=== PATIENT | female | born 1945 | race American Indian/Alaskan Native ===

== ENCOUNTER 2018-07-29 06:10 | Day surgery (SDC) | payer MEDICARE, OTHER, SELFPAY ==
[2018-07-26 10:41] VITALS: BMI 43.2
[2018-07-29] VITALS (18 sets, daily range): BP systolic 130–160; BP diastolic 70–86; PULSE 72–93; RESP 9–20; TEMP 36.2–36.7; O2SAT 93–99; BMI 43.2
--- NOTE | 2018-07-29 | DI.RAD.S_ITS ---
PROCEDURE: XR CERVICAL SPINE 2V OR 3V INDICATIONS: ACDF C5-6 6-7 TECHNIQUE: 2 view(s) of the cervical spine were acquired. COMPARISON: None. FINDINGS: Bones: 2 intraoperative fluoroscopic images of the cervical spine were obtained. No fractures or dislocations to the C5 level. Expected postoperative changes from ACDF of C5-C7. Soft tissues: Limited evaluation of the soft tissue structures appear unremarkable. IMPRESSION: Status post anterior cervical discectomy and fusion of C5-C7. Dictated by: Benjamin Rick M.D. on 07/29/2018 at 10:41 Approved by: Benjamin Rick M.D. on 07/29/2018 at 10:42
[2018-07-29] MEDS: LACTATED RINGERS 1,000 ML 42 ML IV ×2 (06:55→09:11)
--- NOTE | 2018-07-29 07:40 | PC.NURSE ---
Day shift: Pt not on AC unit at this time.
[2018-07-29] MEDS: CEFAZOLIN 2 GM/100 ML FROZ.PIGGY IV ×2 (07:49→15:45)
--- NOTE | 2018-07-29 08:30 | SUR.OPER ---
Supine, head on gel donut. Arms padded with gel pads, tucked at sides, towel roll under shoulders. Safety belt at thigh. Legs uncrossed.
--- NOTE | 2018-07-29 10:29 | PM.OP.1 ---
Operative Date/Time/Diagnoses Date of procedure: 07/29/18 Time of procedure: 08:04 Pre-op diagnosis: 1. C5-6, C6-7 spinal stenosis 2. C5-6, C6-7 spondylosis with radiculopathy Post-op diagnosis: same Procedure & Clinicians Procedure: 1. C5-6 C6-7 anterior cervical diskectomy and fusion 2. C5-6 C6-7 anterior interbody cage placement 3. C5-6 C6-7 anterior instrumentation with plate and screw placement in C5-C6 and C7 vertebrae 4. Utilization of microsurgical technique and operating microscope Same procedure as scheduled: Yes Indications: Patient has been having chronic neck pain and worsening cervical radiculopathy. Patient failed multiple conservative management with worsening pain weakness and numbness in her upper extremity. Patient has been having difficulty performing activity of daily living. After discussing risks benefits of treatment options, patient elected proceed with surgery. Surgeon: Michael Davis Overlock Sewing Machine Operator: Madelin Gibbons'Brien Click Yes if Unassisted: No Anesthesia Type: General Operative Notes Closure Type: primary Specimen(s): none sent Prosthetic devices, grafts, tissues, transplants, or devices: GLobus extend plate, Colonial cages Estimated Blood Loss (mL): 50 Blood products transfused: none Procedure in detail: Patient was seen in the preoperative area. Risks and benefits of the surgery was discussed with the patient. Operative consent was obtained and placed in the chart. Patient was then taken to the operative room. Prophylactic antibiotic was given less than 0.5 hr prior to skin incision. General anesthesia was administered. Patient was placed into a supine position on her radiolucent table. Bilateral shoulders were taped down to allow proper C-arm imaging. Anterior cervical area was prepped and draped in a sterile fashion. Time-out was performed at this time. Using lateral C-arm imaging, the level between C5 and C7 was identified and marked on patient's neck. A oblique incision from midline towards medial border of sternocleidomastoid muscle was made. The platysma muscle was incised in line with skin incision. Metzenbaum scissor was used to develop the plane between the medial border of sternocleidomastoid d and the strap muscles medially. The carotid sheath and its contents were identified and protected behind the hand-held retractor during the entire case. The plane between the carotid sheath and strap muscles was developed with Metzenbaum scissors. Dissection was made down to the level of the anterior cervical fascia. Longus colli muscle was incised on the anterior aspect of vertebral bodies bilaterally from C5-C7. Spinal needle was placed into the C5-6 disc space and confirmed with lateral C-arm imaging. Using microsurgical technique and operative microscope, anterior cervical diskectomy was performed at C5-6 and C6-7 level. This was done by removing the disc material, removing the anterior and posterior osteophytes posterior longitudinal ligaments along with performing bilateral foraminotomies at both levels. Patient was found to have severe central and foraminal stenosis at both levels. Patient's stenosis was fully decompressed after decompression was completed. After the diskectomy was completed, 2 anterior interbody cages were obtained. The cages were packed with DBM bone grafting material. One cage each along with the bone grafting material was then packed into the interbody spaces from C5-C7 with one cage into each interbody level. After the cages were placed, the anterior cervical plate was stabilized to the C5-C7 vertebrae using 2 screws at each each level. Total 6 screws were placed. After confirming placement of the hardware with AP and lateral C-arm imaging, the screws were locked into the plate using the locking mechanism and torque limiting screwdriver. After the hardware was placed and confirmed with AP and lateral C-arm imaging, the wound was irrigated with sterile normal saline. The platysma muscle and the subcutaneous tissue was closed with 2-0 Vicryl. The skin was closed with 4-0 Monocryl and Steri-Strips. Patient tolerated the procedure well. Patient was transferred recovery room in stable condition. There were no complications. Complications: none Condition: stable Disposition: PACU Plan for aftercare: Admit to inpatient hospital
[2018-07-29] MEDS: HYDROMORPHONE 2 MG INJ 0.5 MG IV ×4 (10:34→10:55)
--- NOTE | 2018-07-29 10:38 | PM.PREOP ---
Pre-operative Note Interval Note History & Physical reviewed/Exam performed by Physician: Yes Changes to H&P: No
[2018-07-29] MEDS: LORazepam 2 MG/ML SYRINGE 0.5 MG IV (10:59)
--- NOTE | 2018-07-29 11:01 | SUR.PHASEI ---
Pt arrived, awakened, follows commands, c/o pain medicated with dilaudid and lorazepam. R Shouler with 3x3 area of eccymosis- ice applied and L shoulder has 2x2 reddened area- some skin sloughed off.
--- NOTE | 2018-07-29 11:14 | SUR.PHASEI ---
Report to Melisa, Pt states pain tolerarable after lorazepam given.
--- NOTE | 2018-07-29 11:37 | PC.NURSE ---
Day shift: Arrived on unit from PACu at approx 1130. Pt is A&Ox3. CMS intact. Good radial pulses. Dressing anterior neck is CDI. Collar in place. VS ok. 2L NC 95%.
--- NOTE | 2018-07-29 11:41 | SUR.PHASEI ---
Pt transfered up to room 205, left in stable condition. Area on l shoulder resolved, R shoulder still with eccymotic area. neck dressing with soft collar intact. Pt left in stable condition, placed on nasal cannula 02 at 2/l.
[2018-07-29] MEDS: SODIUM CHLORIDE 0.9% 1,000 ML 100 ML IV ×2 (12:53→21:49)
[2018-07-29] MEDS: HYDROCODONE/ACET 5/325 TABLET 2 TAB PO ×2 (13:23→19:25)
--- NOTE | 2018-07-29 14:46 | PT.IIE ---
Current Diagnoses Other spondylosis with radiculopathy, cervical region (07/29/18) Spinal stenosis, cervical region (07/29/18) Surgery Performed Operation Date: 07/29/18 07:45 Actual Procedures p C5-6,C6-7 ACDF w/Anterior Instru. - Michael Davis MD Surgical History (Last Updated 07/26/18 @ 11:08 by Marissa Geiger, RN) History of arthroscopy of both knees (Acute) History of lumbar fusion (Acute 04/30/17) Hx of bladder repair surgery (Acute) Medical History (Last Updated 07/26/18 @ 11:12 by Marissa Geiger RN) Allergic rhinitis (Acute) Anxiety (Acute) Arm fracture, left (Acute) Arthritis (Acute) Depression (Acute) Diverticulosis (Acute) Encounter for removal of skin lesion (Acute ~2017) Former smoker (Acute) Generalized headaches (Acute) HLD (hyperlipidemia) (Acute) History of hysterectomy (Acute ~1972) Panic disorder (Acute) Tinnitus (Acute) Physical Therapy Inpatient Evaluation/Re-Eval M1 PT/OT-IP Prior Functional Status Start: 07/29/18 15:56 Freq: NEEDED Status: Active Protocol: Document 07/29/18 14:46 AB (Rec: 07/29/18 16:12 AB [id number]) Medical Review Prior Functional Status Medical History Reviewed Yes Communication able to make needs known Mobility and Gait pt stated that she is independent with all mobilities and ambulation without AD Social History Household Members none Living Arrangements House Number of Floors (Floors) One Floor Number of Stairs To Enter/Railing? has no steps to enter Home Environment High Toilet Walk in Shower Home Equipment Straight Cane Shower Seat without Backrest Hand Held Shower Grab Bars Near Toilet Grab Bars In Shower Employment Status Retired Additional Social History Comment pt's niece that lives next door will check on pt and then pt's daughter will be coming Thursday to stay with pt for 1 week pt has a regular cane but has a bedcane on L side of the bed M2 PT-IP Current Condition Start: 07/29/18 15:56 Freq: NEEDED Status: Active Protocol: Document 07/29/18 14:46 AB (Rec: 07/29/18 16:12 AB [id number]) Physical Therapy Current Condition Current Condition Evaluation Date 07/29/18 Treatment Diagnosis s/p C5-6, C6-7 ACDF; difficulty in walking Onset Date 07/29/18 Precautions Cervical Spine Precautions Soft Collar for Comfort No Heavy Lifting Log Roll M3 PT-IP Subjective Start: 07/29/18 15:56 Freq: NEEDED Status: Active Protocol: Document 07/29/18 14:46 AB (Rec: 07/29/18 16:12 AB [id number]) Subjective Physical Therapy Visit Type Type Initial Evaluation Visit Start Time 14:46 Visit Stop Time 15:21 Total Visit Minutes 40 Number of CLINICAL REVIEW NURSE Visits 0 Physical Therapy Visit Comments Patient Comments pt agreeable to do PT Therapy Pain Assessment Pain When Pain Assessed At Rest Pain Present Pain Present Pain Reported Location Neck Intensity 8 Scale Used Numeric (1 - 10) Pain Management Techniques Apply Cold Re-positioning Timing of Activity with Medications M4 PT-IP Mobility and Gait Start: 07/29/18 15:56 Freq: NEEDED Status: Active Protocol: Document 07/29/18 14:46 AB (Rec: 07/29/18 16:12 AB [id number]) PT-Bed Mobility Assessment Rolling Type of Rolling Log Rolling Level of Assist Standby Assistance Supine to Sit Supine to Sit Standby Assistance Bedrails Sit to Supine Sit to Supine Standby Assistance Bedrails Scooting Scooting to Edge of Bed Standby Assistance PT-Transfer Assessment Sit to and From Stand Sit to and from Stand Contact Guard Assistance Equipment Transfer Assistive Device Gait Belt Front Wheeled Walker Orthotic/Prosthetic Devices or Brace: No Transfers Transfer Destination Toilet Transfer Technique pt ambulated to the toilet using FWW Transfer Ability Level of Assist Minimal Assistance 1 Person Assistance Use of Upper Extremities Comments Mobility Comments pt requested to use the toilet and ambulated using FWW min A and cues. pt was able to completed sit to stand from the toilet using grab bar SBA and ambulated towards the sink using FWW min A and cues and maintained standing using FWW for support CGA while completing handwashing. pt requested to go back to bed and ambulated using FWW min A and cues. Gait Assessment Gait Gait Assistance Required: Minimum Assistance Distance (Feet) 20 Able to Maintain Weight Bearing Status Yes During Gait Assistive Devices Assistive Device Gait Belt Front Wheeled Walker Orthotic/Prosthetic Devices or Brace: No Gait Deviations General Gait Pattern Antalgic Decreased Stride Length Decreased Feet Clearance Factors Limiting Gait Function Factors Limiting Gait Function Decreased Activity Tolerance Decreased Strength Limited Range of Motion Pain Poor Balance Comments Gait Comments pt presents with unsteady antalgic gait. PT-Balance Assessment Sitting Balance and Reactions Static Sitting Balance Ability Good Dynamic Sitting Balance Ability Good Standing Balance and Reactions Static Standing Balance Ability Fair Dynamic Standing Balance Ability Fair Device Used FWW M5 PT-IP Objective Assessments Start: 07/29/18 15:56 Freq: NEEDED Status: Active Protocol: Document 07/29/18 14:46 AB (Rec: 07/29/18 16:12 AB [id number]) Orientation Orientation/Cognition Level of Alertness Alert Orientation Name Place Situation Language Function Ability No Deficits Noted Safety Awareness Understands Safety Issues Memory Description No Deficits Noted Gross Range of Motion Lower Extremity ROM Assessment Within Functional Limits Strength Lower Extremity Strength Assessment Within Functional Limits Sensation Assessment Sensation Gross Sensation WNL Muscle Tone Muscle Tone WNL Yes M6 PT-IP Treatment Start: 07/29/18 15:56 Freq: NEEDED Status: Active Protocol: Document 07/29/18 14:46 AB (Rec: 07/29/18 16:12 AB [id number]) Physical Therapy Treatment Education Education Provided Precautions Post-Op Packet Safety M7 PT-IP Assessment and Plan Start: 07/29/18 15:56 Freq: NEEDED Status: Active Protocol: Document 07/29/18 14:46 AB (Rec: 07/29/18 16:12 AB [id number]) PT Summary Assessment and Plan Potential Rehabilitation Potential Good Status of Condition at Evaluation Stable Summary Impairments Pain ROM Strength Balance Coordination Sensation Bed Mobility Transfers Gait Activity Tolerance Assessment Summary pt requiring one person assist with mobility and will likely improve during hospital stay. will continue to assess progress. Goals Bed Mobility Goal Independent Transfer Goal Independent Cane Front Wheeled Walker Gait Goal Independent Cane Front Wheel Walker Gait Distance 200 Days to Meet Goals 3 Frequency of Treatment Frequency Of Treatment Twice a Day Treatment Plan Physical Therapy Treatment Plan Bed Mobility Training Transfer Training Gait Training Therapeutic Exercise Balance Retraining Post Op Education Discharge Planning Hot or Cold Pack Neuromuscular Re-ed Coordination Retraining Manual Therapy Other Recommendations and Next Treatment ambulation using SPC/without Focus AD if appropriate; soft collar management; caregiver training if appropriate Recommendations To Nursing Amount of Assist Needed 1 Person Assist Discharge Recommendations PT Discharge Recommendations Home with Assistance Equipment Needed for Home Before FWW if not safet with SPC/ Discharge without AD: pt stated that she can get out from their clinic
[2018-07-29] MEDS: SENNOSIDES 8.6 MG TABLET 17.2 MG PO (20:22)
[2018-07-29] MEDS: DOCUSATE 100 MG CAPSULE PO (20:22)
[2018-07-30] MEDS: CEFAZOLIN 2 GM/100 ML FROZ.PIGGY IV (00:10)
[2018-07-30] MEDS: MAG HYDROX/ALUM/SIMETH 30 ML UDC PO (00:12)
[2018-07-30] MEDS: HYDROCODONE/ACET 5/325 TABLET 2 TAB PO ×2 (00:12→05:49)
[2018-07-30 00:17] VITALS: BP 130/94; PULSE 80; RESP 16; TEMP 36.7; O2SAT 95
--- NOTE | 2018-07-30 00:31 | PC.NURSE ---
Addendum entered by Payton Henriquez R.N. 07/30/18 05:55: Does complain of sore throat, but denies difficulty swallowing. No coughing or choking observed when taking pills/water. Original Note: Addendum entered by Payton Henriquez R.N. 07/30/18 05:53: Slept at intervals. Up to bathroom with SBA + walker but likes to garbage pick up man walker and walk rather than actually utilizing the walker for support. RA sat 97%. Complains of 6/10 posterior neck/shoulders; medicated with Vicodin and ice applied to neck. Original Note: Patient is alert and oriented. Breath sounds CTA with RA sat of 95%. HRR. Denies nausea but is having some heartburn unrelieved by earlier Zantac administration so medicated with Maalox. BT hypoactive; denies flatus. Voiding on toilet without dysuria, frequency or urgency. Able to turn self in bed and using walker and SBA when out of bed. Neck dressing is CDI; wearing soft collar. Noted petichiae beneath Tegaderm over dressing. Bruise noted on right upper arm. States pain is currently 8/10 so medicated with Vicodin and ice applied to posterior neck. CMS is intact. Wearing bilateral foot SCD's. Fall risk score is high and bed alarm is activated.
[2018-07-30 06:18] VITALS: BP 138/60; PULSE 77; RESP 16; TEMP 36.4; O2SAT 95
[2018-07-30 07:45] VITALS: BP 140/68; PULSE 67; RESP 18; TEMP 36.3; O2SAT 97
--- NOTE | 2018-07-30 08:03 | PM.DS.1 ---
History of Present Illness Date Patient Seen: 07/30/18 Time Patient Seen: 08:03 Chief complaint: [id number] Narrative: Patient has been having chronic neck pain and worsening cervical radiculopathy. Patient failed multiple conservative management with worsening pain weakness and numbness in her upper extremity. Patient has been having difficulty performing activity of daily living. After discussing risks benefits of treatment options, patient elected proceed with surgery. Discharge Providers Date of admission: 07/29/18 06:10 Discharge Date: 07/30/18 Consults: 07/29/18 11:32 Consult to Occupational Therapy Evaluate & Treat Comment: Physician Instructions: Evaluate and treat Consult to Physical Therapy Evaluate & Treat Comment: Physician Instructions: Evaluate and Treat Discharge provider: Madelin Garcia PA-C Summary Discharge Diagnosis: s/p ACDF Hypertension Glaucoma morbid obesity Hospital Course: Lisandra was admitted for C5-[address] Davis and she consented to procedure. hospital course unremarkable. on postop day 1. Patient was ready to go home. She is eating and voiding without difficulty or assistance. She had been up with physical therapy and OT. She was instructed on her precautions of no bending lifting or twisting. Exam Vital Signs (past 8 hours): - 07/30/18 00:17 07/30/18 06:18 Temperature 98.0 F 97.5 F L Pulse Rate 80 77 Respiratory Rate 16 16 Blood Pressure 130/94 H 138/60 Pulse Oximetry 95 95 Fraction of Inspired Oxygen 21 Oxygen Delivery Method Room Air Oxygen Flow Rate 0 Narrative Exam Narrative: Patient is sitting up in bed in no acute distress. She is alert and oriented x3. Reporting Coordinator strength strong and equal. Sensation intact light touch throughout bilateral extremities. Cervical collar in place. Anterior dressing CDI. Radial pulses are symmetrical. Her pain is well controlled with House. Discharge Plan Discharge Plan Patient Disposition: Home Discharge comment: DC home after PT Discharge Med Rec/Prescriptions Prescriptions: New hydrocodone-acetaminophen 5-325 mg Tablet 2 tab PO Q4HR PRN (Reason: Pain, Severe (7-10)) Qty: 60 RF: 0 docusate sodium 100 mg Capsule 100 mg PO BID Qty: 60 RF: 0 cyclobenzaprine 5 mg tablet 5 mg PO TID PRN (Reason: muscle spasm) Qty: 30 RF: 0 Continued cetirizine 10 MG tablet 10 mg PO QDAYP PRN (Reason: Seasonal allergies) Qty: 0 RF: 0 ranitidine HCl 150 MG tablet 150 mg PO QDAY Qty: 0 RF: 0 hydrochlorothiazide 12.5 MG tablet 12.5 mg PO QDAY Qty: 0 RF: 0 Follow up/Referrals: Michael Davis MD [Physician] - Provider Discharge Instructions Diet: Diet as Tolerated Activity: No excessive bending, lifting, or twisting Skin/Wound/Dressing Care Report to your healthcare provider any signs of infection, such as:: chills, fever and increased pain Dressing: Leave in place until appointment Discharge Data Attending Provider: Michael Davis Admit Date/Time: 07/29/18 06:10
[2018-07-30] MEDS: hydroCHLOROthiazide 12.5 MG CAPSULE PO (08:30)
[2018-07-30] MEDS: DOCUSATE 100 MG CAPSULE PO (08:30)
--- NOTE | 2018-07-30 09:05 | PT.IPTN ---
Current Diagnoses Other spondylosis with radiculopathy, cervical region (07/29/18) Spinal stenosis, cervical region (07/29/18) Surgery Performed Operation Date: 07/29/18 07:45 Actual Procedures p C5-6,C6-7 ACDF w/Anterior Instru. - Michael Davis MD Physical Therapy Treatment Note M2 PT-IP Current Condition Start: 07/29/18 15:56 Freq: NEEDED Status: Active Protocol: Document 07/29/18 14:46 AB (Rec: 07/29/18 16:12 AB [id number]) Physical Therapy Current Condition Current Condition Evaluation Date 07/29/18 Treatment Diagnosis s/p C5-6, C6-7 ACDF; difficulty in walking Onset Date 07/29/18 Precautions Cervical Spine Precautions Soft Collar for Comfort No Heavy Lifting Log Roll M3 PT-IP Subjective Start: 07/29/18 15:56 Freq: NEEDED Status: Active Protocol: Document 07/30/18 09:05 GGD (Rec: 07/30/18 11:21 GGD [id number]) Subjective Physical Therapy Visit Type Type Treatment Note Visit Start Time 08:45 Visit Stop Time 09:05 Total Visit Minutes 20 Number of MEDIA PLANNER / BUYER Visits 1 Physical Therapy Visit Comments Patient Comments Pt hopes to go home. Therapy Pain Assessment Pain When Pain Assessed At Rest Pain Present Pain Present Pain Reported Location Neck Intensity 6 Scale Used Numeric (1 - 10) M4 PT-IP Mobility and Gait Start: 07/29/18 15:56 Freq: NEEDED Status: Active Protocol: Document 07/30/18 09:05 GGD (Rec: 07/30/18 11:21 GGD [id number]) PT-Bed Mobility Assessment Sit to Supine Sit to Supine Standby Assistance Bedrails Scooting Scooting to Edge of Bed Standby Assistance PT-Transfer Assessment Sit to and From Stand Sit to and from Stand Contact Guard Assistance Equipment Transfer Assistive Device Straight Cane Front Wheeled Walker Orthotic/Prosthetic Devices or Brace: No Transfers Transfer Destination Bed Transfer Technique pt ambulated to the toilet using FWW Transfer Ability Level of Assist Contact Guard Assistance 1 Person Assistance Use of Upper Extremities Gait Assessment Gait Gait Assistance Required: Contact Guard Assist Distance (Feet) 150 Able to Maintain Weight Bearing Status Yes During Gait Assistive Devices Assistive Device Gait Belt Front Wheeled Walker Orthotic/Prosthetic Devices or Brace: No Gait Deviations General Gait Pattern Antalgic Decreased Stride Length Decreased Feet Clearance Factors Limiting Gait Function Factors Limiting Gait Function Decreased Activity Tolerance Decreased Strength Limited Range of Motion Pain Poor Balance M5 PT-IP Objective Assessments Start: 07/29/18 15:56 Freq: NEEDED Status: Active Protocol: Document 07/29/18 14:46 AB (Rec: 07/29/18 16:12 AB [id number]) Orientation Orientation/Cognition Level of Alertness Alert Orientation Name Place Situation Language Function Ability No Deficits Noted Safety Awareness Understands Safety Issues Memory Description No Deficits Noted Gross Range of Motion Lower Extremity ROM Assessment Within Functional Limits Strength Lower Extremity Strength Assessment Within Functional Limits Sensation Assessment Sensation Gross Sensation WNL Muscle Tone Muscle Tone WNL Yes M6 PT-IP Treatment Start: 07/29/18 15:56 Freq: NEEDED Status: Active Protocol: Document 07/30/18 09:05 GGD (Rec: 07/30/18 11:21 GGD [id number]) Physical Therapy Treatment Education Education Provided Precautions Safety M7 PT-IP Assessment and Plan Start: 07/29/18 15:56 Freq: NEEDED Status: Active Protocol: Document 07/30/18 09:05 GGD (Rec: 07/30/18 11:21 GGD [id number]) PT Summary Assessment and Plan Summary Assessment Summary Pt improving with mobility. She had mild unsteadiness with gait with SPC, but no LOB. She would have improved safety and balance with gait with FWW. Pt safe for home d/C when medically stable. Frequency of Treatment Frequency Of Treatment Twice a Day Treatment Plan Physical Therapy Treatment Plan Bed Mobility Training Transfer Training Gait Training Therapeutic Exercise Balance Retraining Post Op Education Discharge Planning Hot or Cold Pack Neuromuscular Re-ed Coordination Retraining Manual Therapy Other Recommendations and Next Treatment ambulation using SPC/without Focus AD if appropriate; soft collar management; caregiver training if appropriate Recommendations To Nursing Amount of Assist Needed 1 Person Assist Discharge Recommendations PT Discharge Recommendations Home with Assistance
--- NOTE | 2018-07-30 09:05 | PC.NURSE ---
Addendum entered by Adriana Hollis R.N. 07/30/18 11:22: pt escorted to ER entrance and met by daughter in personal vehicle. Original Note: Addendum entered by Adriana Hollis R.N. 07/30/18 10:46: Ride arrive. PIV removed (tolerated well). neighborhood planner in room. Original Note: Addendum entered by Adriana Hollis R.N. 07/30/18 10:14: Using IS q1h. Original Note: AM SHIFT pt AO and receptive to care. Up to BR and voiding, denying nausea. Showered with OT and ambulated in the hallways with PT. Tolerating pain. Dressing cdi. NS infusion stopped at 0830, pt saline locked. Discharge ready and ride to arrive around 1000.
--- NOTE | 2018-07-30 09:13 | OT.IP.EVAL ---
Current Diagnoses Other spondylosis with radiculopathy, cervical region (07/29/18) Spinal stenosis, cervical region (07/29/18) Surgery Performed Operation Date: 07/29/18 07:45 Actual Procedures p C5-6,C6-7 ACDF w/Anterior Instru. - Michael Davis MD Past Medical History (Last Updated 07/26/18 @ 11:12 by Marissa Geiger, RN) Allergic rhinitis (Acute) Anxiety (Acute) Arm fracture, left (Acute) Arthritis (Acute) Depression (Acute) Diverticulosis (Acute) Encounter for removal of skin lesion (Acute ~2017) Former smoker (Acute) Generalized headaches (Acute) HLD (hyperlipidemia) (Acute) History of hysterectomy (Acute ~1972) Panic disorder (Acute) Tinnitus (Acute) Surgical History (Last Updated 07/26/18 @ 11:08 by Marissa Geiger, RN) History of arthroscopy of both knees (Acute) History of lumbar fusion (Acute 04/30/17) Hx of bladder repair surgery (Acute) Occupational Therapy Inpatient Evaluation/Re-Eval M1 PT/OT-IP Prior Functional Status Start: 07/29/18 15:56 Freq: NEEDED Status: Active Protocol: Document 07/29/18 14:46 AB (Rec: 07/29/18 16:12 AB [id number]) Medical Review Prior Functional Status Medical History Reviewed Yes Communication able to make needs known Mobility and Gait pt stated that she is independent with all mobilities and ambulation without AD Social History Household Members none Living Arrangements House Number of Floors (Floors) One Floor Number of Stairs To Enter/Railing? has no steps to enter Home Environment High Toilet Walk in Shower Home Equipment Straight Cane Shower Seat without Backrest Hand Held Shower Grab Bars Near Toilet Grab Bars In Shower Employment Status Retired Additional Social History Comment pt's niece that lives next door will check on pt and then pt's daughter will be coming Thursday to stay with pt for 1 week pt has a regular cane but has a bedcane on L side of the bed M1 PT/OT-IP Prior Functional Status Start: 07/30/18 08:56 Freq: NEEDED Status: Active Protocol: Document 07/30/18 08:56 [facility] (Rec: 07/30/18 09:13 [facility] [id number]) Medical Review Prior Functional Status Medical History Reviewed Yes Diet/Fluid Consistency Regular Thin Liquids Communication able to make needs known Mobility and Gait pt stated that she is independent with all mobilities and ambulation without AD Activities of Daily Living and IADL's Prior independent with all needs. Social History Household Members none Living Arrangements House Number of Floors (Floors) One Floor Number of Stairs To Enter/Railing? has no steps to enter Home Environment High Toilet Walk in Shower Home Equipment Straight Cane Shower Seat without Backrest Hand Held Shower Grab Bars Near Toilet Grab Bars In Shower Employment Status Retired Additional Social History Comment pt's niece that lives next door will check on pt and then pt's daughter will be coming Thursday to stay with pt for 1 week pt has a regular cane but has a bedcane on L side of the bed M2 OT-IP Current Condition Start: 07/30/18 08:56 Freq: Status: Active Protocol: Document 07/30/18 08:56 [facility] (Rec: 07/30/18 09:13 [facility] [id number]) Occupational Therapy Current Condition Current Condition Evaluation Date 07/30/18 Treatment Diagnosis s/p C5-6, C6-7 ACDF Diagnosis Onset Date 07/29/18 Post Operative Precautions Cervical Spine Precautions Soft Collar for Comfort Soft Collar at all Times No Heavy Lifting Log Roll M3 OT- IP Subjective and Pain Start: 07/30/18 08:56 Freq: Status: Active Protocol: Document 07/30/18 08:56 [facility] (Rec: 07/30/18 09:13 [facility] [id number]) OT- Subjective Occupational Therapy Visit Type Type Initial Evaluation Visit Start Time 09:30 Visit Stop Time 09:53 Total Visit Minutes 23 Occupational Therapy Visit Comments Patient Comments Pt wanting to shower and go home today. OT Pain Assessment Pain When Pain Assessed During Mobility Pain Present Pain Present Pain Reported Location Neck Intensity 6 M4 OT- IP ADL's Start: 07/30/18 08:56 Freq: Status: Active Protocol: Document 07/30/18 08:56 [facility] (Rec: 07/30/18 09:13 [facility] [id number]) OT ADL-Dressing General Eval Upper Body Dressing Ability Independent Lower Body Dressing Ability Independent Comments OT Dressing Comments Pt able to sit from LB dressing needs. Pt also able to do soft collar management after initial cues. OT ADL-Toileting General Evaluation Toileting Ability Independent OT ADL-Bathing Bathing Type Bathing Type Shower General Evaluation Bathing Ability Standby Assistance Areas Needing Assistance Retrieving/Setting Up Items Comments OT Bathing Comments Assist to take HHSP off the peg, otherwise after set-up able to do most of the shower on her own. Pt states has access to a shower chair if needed and will shower when someone present. M5 OT- IP IADL's Start: 07/30/18 08:56 Freq: Status: Active Protocol: Document 07/30/18 08:56 [facility] (Rec: 07/30/18 09:13 [facility] [id number]) OT-Instrumental Activities of Daily Living Deficits IADL Deficits Identified No Deficits Home Safety Awareness Awareness of Need for Assistance at Home Good Awareness Ability to Problem Solve Emergency Able to Problem Solve Situations Home Safety Comments Pt to have family assist for all iADl needs, especially to get her 2-3 gallon water form the store. Medication Management Medication Management No Deficits Identified Money Management Money Management No Deficits Identified M6 OT- IP Functional Cognition Start: 07/30/18 08:56 Freq: Status: Active Protocol: Document 07/30/18 08:56 [facility] (Rec: 07/30/18 09:13 [facility] [id number]) Cognitive Factors Limiting Selfcare Function Cognitive Ability Level of Alertness Alert Patient Orientation Name Age Birthday Month Date Year Day of Week Place Situation Attention Span Ability Capable of Focused Attention Capable of Sustained Attention Ability to Follow Commands Able to Follow Multi-Step Commands Memory Description No Deficits Noted Safety Awareness No Deficits Noted Problem Solving Ability No deficits Noted Cognitive Comments Cognitive Assessment Comments No deficits noted. OT- Vision and Hearing OT- Hearing Assessment OT- Hearing Assessment WFL OT- Vision Assessment Visual Acuity WFL M7 OT- IP Mobility and Balance Start: 07/30/18 08:56 Freq: Status: Active Protocol: Document 07/30/18 08:56 [facility] (Rec: 07/30/18 09:13 [facility] [id number]) OT- Bed Mobility Assessment Rolling Type of Rolling Roll to Right Level of Assistance Standby Assistance OT-Transfer Assessment Sit to and From Stand Sit to and from Stand Independent Transfers Transfer Ability Independent Technique Transfer Destination Chair Shower Stall Toilet Devices Transfer Assistive Devices Front Wheeled Walker Comments Mobility Comments Pt independent with FWW and able to show good safety and able to access FWW if needed. PIPELINE SUPERINTENDENT came in to access pt with cane. OT- Balance Assessment Sitting Balance and Reactions Static Sitting Balance Ability Normal Dynamic Sitting Balance Ability Normal Standing Balance and Reactions Static Standing Balance Ability Normal Dynamic Standing Balance Ability Good M8 OT- IP Objective Assessments Start: 07/30/18 08:56 Freq: Status: Active Protocol: Document 07/30/18 08:56 [facility] (Rec: 07/30/18 09:13 [facility] [id number]) OT Gross Range of Motion Upper Extremity Range of Motion Assessment Within Functional Limits OT Strength Comments Strength Comments WFL for BUE M9 OT- IP Assessment and Plan Start: 07/30/18 08:56 Freq: Status: Active Protocol: Document 07/30/18 08:56 [facility] (Rec: 07/30/18 09:13 [facility] [id number]) OT Summary Assessment and Plan Potential Rehabilitation Potential Excellent Analytic Complexity at Evaluation Low Summary OT Impairments Functional Mobility Progress Towards Goals Safe For Discharge Assessment Summary Pt low complexity and may barrier is that pt will benefit from FWW as PIPELINE SUPERINTENDENT determined pt a bit unsteady with cane at this time. Pt will have daughter come and stay with her from a week and other family members to assist as well. Pt looking to go home today. Goals Patient/Caregiver Education Goal Demonstrate Post-Op Precautions Days to Meet Goals 1 Frequency of Treatment Frequency Of Treatment Once a Day Treatment Plan OT Treatment Plan Patient/Family Education Discharge Planning Discharge Recommendations OT Discharge Recommendations Home with Assistance Home Equipment Needs Pt has access for shower chair and FWW.
--- NOTE | 2018-07-30 13:46 | CM.DPNOTE ---
Pt DC home today w/family. Cleared by therapy team and PA, no SW needs identified and no barriers to safe return home w/outpt f/u as ordered by Dr Davis. ELIZABETH Holguin Discharge Planning/Care Management CM Discharge Assessment Start: 07/29/18 08:42 Freq: Status: Discharge Protocol: Document 07/29/18 08:42 [email or web address] (Rec: 07/29/18 08:48 LYUBOV [id number]) Discharge Planning Assessment Assigned Career Advisor ELIZABETH Durbin DPOA/Assigned Designee Name Angelica Dow dtr Contact Information [phone] Advance Directives? No History Provided By Medical Record Prior Living Arrangements House Household Members none Type of transporation used prior to Drives own vehicle admit Independent with ADL's Yes: Activity tolerance has decreased sec to back pain Is patient alert and oriented? Yes Barriers to Discharge No Comment Pt off floor for spinal surgery today. Likely pt will be able to DC back home w/dtr to assist. Further assessment needed. Discharge Plan Home Transportation Arrangement Family Referrals Initiated None needed Additional Comment Pending therapy eval and further assessment. Review Status In Process
== END 2018-07-30 11:00 | disposition home or self-care (01) ==
LOC: AC 07-30 10:55 → OR 07-30 11:32
PROVIDERS: Visit Provider Orthopaedic Surgery Orthopaedic Surgery of the Spine
PROC: (CPT 22551; principal; 2018-07-29 07:45)
DX: M48.02 Spinal stenosis, cervical region (principal); M47.22 Other spondylosis with radiculopathy, cervical region; E66.01 Morbid (severe) obesity due to excess calories; Z68.41 Body mass index [BMI] 40.0-44.9, adult; I10 Essential (primary) hypertension
CPT/HCPCS: 22551; 22853 ×2; 22552; 72040; 76000; 94760; 94762; 97116; 97161; 97165; 97530; 97535; C1776; J0690; J1100; J1170; J2060; J2250; J2405; J2704; J3010

== ENCOUNTER → 2021-10-02 12:33 | Outpatient (CLI) | payer MEDICARE, OTHER, SELFPAY ==
[2018-07-29 13:07] VITALS: BMI 43.2
[2021-10-02 13:14] LABS: Add Manual Diff / Slide Review NO; Basophils Absolute Auto 0 /uL (0-100); Basophils Percent Auto 0.7 % (0-2); Eosinophils Absolute Auto 100 /uL (0-450); Eosinophils Percent Auto 1.3 % (2-4); Hemoglobin 12.8 g/dL (12.0-16.0); Lymphocytes Absolute Auto 1400 /uL (1100-4500); Lymphocytes Percent Auto 28.1 % (25-40); Mean Corpuscular HGB Conc 33.6 % (30-36); Mean Corpuscular Volume 83.4 fL (80-100); Monocytes Absolute Auto 500 /uL (0-900); Monocytes Percent Auto 9.3 % (3-14); Neutrophils Absolute Auto 3000 /uL (1500-7000); Neutrophils Percent Auto 60.6 % (50-75); Platelet Count 225 X10^3/uL (150-400); Red Blood Cell Count 4.56 X10^6/uL (4.0-5.2); Red Cell Distribution Width 14.2 % (11.6-14.8)
[2021-10-02 13:24] LABS: Hemoglobin A1C% w Est Avg Glu 6.1 % (4.0-6.0)
[2021-10-02 13:59] LABS: BUN Creatinine Ratio 31.9 (6-22); Blood Urea Nitrogen 30 mg/dL (7-17); Calcium 8.9 mg/dL (8.4-10.2); Carbon Dioxide 24 mmol/L (22-32); Chloride 107 mmol/L (98-107); Estimated Glomerular Filt Rate > 60 mL/min (>60); Glucose 109 mg/dL (80-110); HEMOLYSIS 16 (0-50); Potassium 4.2 mmol/L (3.4-5.1); Sodium 137 mmol/L (137-145)
== END ==
PROVIDERS: PCP Family Medicine; Referring Provider Orthopaedic Surgery; Visit Provider Orthopaedic Surgery
DX: Z01.818 Encounter for other preprocedural examination (principal); R73.9 Hyperglycemia, unspecified; M25.562 Pain in left knee; Z01.812 Encounter for preprocedural laboratory examination
CPT/HCPCS: 36415; 80048; 83036; 85025; 93005; 93010

== ENCOUNTER → 2021-12-03 09:49 | Outpatient (CLI) | payer MEDICARE, MEDICAID, SELFPAY ==
[2018-07-29 13:07] VITALS: BMI 43.2
[2021-12-03 12:30] LABS: COVID19 -Nasal RAPID Negative (Negative)
== END ==
PROVIDERS: PCP Family Medicine; Referring Provider Orthopaedic Surgery; Visit Provider Orthopaedic Surgery
DX: Z20.822 Contact with and (suspected) exposure to COVID-19 (principal)
CPT/HCPCS: 87635; C9803

== ENCOUNTER 2021-12-05 11:00 | Observation (INO) | payer MEDICARE, MEDICAID, SELFPAY ==
[2018-07-29 13:07] VITALS: BMI 43.2
[2021-11-29 12:26] VITALS: BMI 37.7
[2021-12-04] VITALS (15 sets, daily range): BP systolic 136–179; BP diastolic 53–83; PULSE 65–85; RESP 15–21; TEMP 35.7–36.7; O2SAT 94–100; BMI 37.7; BMI 39.0
--- NOTE | 2021-12-04 07:35 | DI.RAD.S_ITS ---
PROCEDURE: XR KNEE LT 1TO2V INDICATIONS: post op total knee TECHNIQUE: 2 view(s) of the knee acquired. [facility] [place] KNEE 4+ VIEWS LEFT, 10/08/2021, 16:47. FINDINGS: Bones: Patient is status post knee joint arthroplasty. Hardware components are in expected positions. Visualized bony structures are intact. Soft tissues: Overlying postoperative changes are noted. IMPRESSION: Expected appearance of the left hip arthroplasty. Dictated by: Victor M Alvarado M.D. on 12/04/2021 at 10:53 Approved by: Victor M Alvarado M.D. on 12/04/2021 at 10:54
[2021-12-04] MEDS: ACETAMINOPHEN 325 MG TABLET 975 MG PO (08:19)
[2021-12-04] MEDS: PREGABALIN 75 MG CAPSULE PO (08:19)
[2021-12-04] MEDS: LACTATED RINGERS 1,000 ML 42 ML IV ×2 (08:19→09:39)
[2021-12-04] MEDS: CELECOXIB 200 MG CAPSULE PO (08:19)
--- NOTE | 2021-12-04 08:46 | PM.PREOP ---
Pre-operative Note COVID-19 COVID-19 status: Negative Result date/Date tested (Pos, Neg/Pending): 12/03/21 Interval Note History & Physical reviewed/Exam performed by Physician: Yes Changes to H&P: No
[2021-12-04] MEDS: CEFAZOLIN 2 GM/100 ML PREMIX 100 ML IV (09:05)
[2021-12-04] MEDS: TRANEXAMIC ACID 1,000 MG VIAL 1000 MG INJ ×2 (09:07→10:05)
--- NOTE | 2021-12-04 09:16 | SUR.OPER ---
Supine on padded OR bed. Pillow under head, arms secured on padded armboards <90 degree abduction. Safety belt across torso. Non-operative leg secured with tape over blanket over lower leg. Operative leg secured in [place]o positioner.
[2021-12-04] MEDS: BUPIVACAINE LIPOSOME 266 MG/20 ML VIAL INJ (09:26)
[2021-12-04] MEDS: MORPHINE 4 MG/ML INJ INJ (09:26)
[2021-12-04] MEDS: BUPIVACAINE 0.25% (PF) 60 ML, EPINEPHrine 0.3 MG INJ (09:27)
--- NOTE | 2021-12-04 10:32 | PM.OP.1 ---
Operative Date/Time/Diagnoses Date of procedure: 12/04/21 Time of procedure: 10:32 Pre-op diagnosis: Left knee osteoarthritis Post-op diagnosis: same Procedure & Clinicians Procedure: Left total knee replacement Same procedure as scheduled: Yes Indications: The patient has had progressively worsening left knee pain with radiographic changes consistent with arthritis. Non-operative management has failed and the patient has requested total knee replacement. The risks, benefits and alternatives to surgery were discussed with the patient prior to proceeding. Risks discussed included, but were not limited to, failure to relieve pain, stiffness, infection, nerve damage, deep venous thrombosis, pulmonary embolism, stroke, coma, heart attack, permanent paralysis and , as well as the potential need for eventual revision of the prosthetic. Surgeon: Sundar Addison Communications Director: Tyler Gomes Click Yes if Unassisted: No Anesthesia Type: General, Spinal and Local Operative Notes Findings: Severe tricompartmental osteoarthritis most evident in the lateral compartment with significant lateral femoral condyle hypoplasia. Closure Type: primary Specimen(s): none sent Prosthetic devices, grafts, tissues, transplants, or devices: Implants used in this procedure were manufactured by the [employer] and [employer] and included the BCS II Journey total knee replacement with a size 6 left cobalt chromium femoral component, size 4 left non porous tibial base plate, a 10 mm cross-linked tibial insert and a 35 mm oval Modesta II patellar component. Applied: implant(s) Estimated Blood Loss (mL): 25 Blood products transfused: none Tourniquet time (min): 47 Procedure in detail: The patient was seen in the pre-operative area, where the left knee was identified as the operative site and this was marked with my initials. The patient received pre-operative antibiotics, and was taken to the operating room and placed on the operative table in the supine position. After satisfactory anesthesia, a maritime pilot out was performed. The left leg was encircled with a tourniquet about the proximal thigh, and the leg was prepared from the toes to the tourniquet with ChloroPrep in the usual fashion and draped through sterile drapes. The leg was elevated and exsanguinated with Eschmark bandage and the tourniquet inflated to 250 mmHg pressure. The knee was approached through an approximately 18 cm incision centered over the patella and carried into the knee through a medial parapatellar arthrotomy. The anterior osteophytes and soft tissues were removed. The rotational landmarks of [place]'s line and the transepicondylar axis were marked on the femur with electrocautery, and intramedullary guide holes for the femur and tibia were created. The distal femoral cut was made in 6 degrees of valgus using the intramedullary guide at the primary cut setting. The proximal tibial cut was then made using the intramedullary guide, taking 7 mm of bone off the less involved medial side. The extension gap was checked and the rotation of the femoral component confirmed with the gap balancing blocks. The anterior, posterior and chamfer cuts were then made. The posterior osteophytes and soft tissues were then removed. The posterior capsule was injected with part of a mixture of 60 ml 0.25% Marcaine mixed with 20 ml Exparel and 4 mg of morphine for post-operative pain control. The remainder of this mixture was injected into the capsule and subcutaneous tissues during cement curing. The tibia was prepared with the rotation set by an extra medullary guide. Trial tibial and femoral components were then placed and the intercondylar notch cut through the femoral trial. Range of motion was 0-135 degrees, with good stability throughout the range. The patella was then cut to accommodate the patellar prosthetic. There was a tendency for patellar dislocation at approximately 45? of flexion. This was addressed with a lateral release with the ?pie crust? technique. The trials were then removed, and the femoral hole plugged with a bone plug. The bone was prepared with pulsatile lavage, and dried with a sponge. Cement was applied and the final prosthetics placed. Excess cement was removed during and after cement curing. After confirming there was no extruded cement posteriorly, the final tibial insert was placed. The knee was copiously irrigated and the tourniquet deflated. Hemostasis was obtained. The capsule was closed with interrupted # 2 polyester sutures. The subcutaneous layer was closed with 3-0 Vicryl, and the skin with a running 3-0 V-Lock suture and Dermabond. An Aquacel Ag dressing was applied and the patient was taken to recovery having tolerated the procedure well. The services of a skilled entry level marketing assistant were required for this surgery to proceed expediently. This was necessary for appropriate positioning of the leg, exposure and visualization. Without the services of Mr. Gomes the procedure could not have been accomplished in an expedient fashion. Complications: none Post-operative Condition: stable Disposition: PACU Plan for aftercare: The patient will be maintained on a standard total knee replacement protocol with weight bearing as tolerated. The patient will receive aspirin and sequential compression devices for DVT prophylaxis. The patient will be discharged home when safe for the home environment.
--- NOTE | 2021-12-04 10:55 | SUR.PHASEI ---
Report called to Hari PECK and opportunity for questions given. Pt being transferred to room 218 and is agreeable with plan of care.
[2021-12-04] MEDS: LACTATED RINGERS 1,000 ML 100 ML IV ×2 (11:45→21:55)
[2021-12-04] MEDS: IBUPROFEN 400 MG TABLET PO ×3 (12:40→21:51)
[2021-12-04] MEDS: METOCLOPRAMIDE 10 MG/2 ML INJ IV (12:40)
[2021-12-04] MEDS: ACETAMINOPHEN 325 MG TABLET 650 MG PO ×3 (12:41→23:39)
--- NOTE | 2021-12-04 13:40 | PT.IIE ---
Current Diagnoses Unilateral primary osteoarthritis, left knee (12/04/21) Surgery Performed Operation Date: 12/04/21 08:45 Actual Procedures p Total Knee Arthroplasty(Left) - Sundar Addison MD Surgical History (Last Updated 10/17/21 @ 10:08 by Marissa Geiger, RN) History of arthroscopy of both knees History of hysterectomy (~1972) History of lumbar fusion (04/30/17) Hx of bladder repair surgery Hx of fusion of cervical spine (07/29/18) Medical History (Last Updated 07/26/18 @ 11:12 by Marissa Geiger RN) Allergic rhinitis Anxiety Arm fracture, left Arthritis Depression Diverticulosis Encounter for removal of skin lesion (~2017) Former smoker Generalized headaches HLD (hyperlipidemia) Panic disorder Tinnitus Physical Therapy Inpatient Evaluation/Re-Eval M1 PT/OT-IP Prior Functional Status Start: 12/04/21 15:20 Freq: NEEDED Status: Active Protocol: Document 12/04/21 13:40 AB (Rec: 12/04/21 15:39 AB [id number]) Medical Review Prior Functional Status Medical History Reviewed Yes Communication able to make needs known Mobility and Gait pt stated that she is independent with all mobilities and ambulation without AD Social History Household Members none Living Arrangements House Number of Floors (Floors) One Floor Number of Stairs To Enter/Railing? ramp to enter Home Environment High Toilet,Walk in Shower Home Equipment Front Wheel Walker,Raised Toilet Seat Without Armrests, Hand Held Shower,Grab Bars In Shower Additional Social History Comment has an adjustable bed with R side bed cane M2 PT-IP Current Condition Start: 12/04/21 15:20 Freq: NEEDED Status: Active Protocol: Document 12/04/21 13:40 AB (Rec: 12/04/21 15:39 AB [id number]) Physical Therapy Current Condition Current Condition Evaluation Date 12/04/21 Treatment Diagnosis s/p L TKA; difficulty in walkiing Onset Date 12/04/21 M3 PT-IP Subjective Start: 12/04/21 15:20 Freq: NEEDED Status: Active Protocol: Document 12/04/21 13:40 AB (Rec: 12/04/21 15:39 AB [id number]) Subjective Physical Therapy Visit Type Type Initial Evaluation Visit Start Time 13:40 Visit Stop Time 14:30 Total Visit Minutes 50 Number of DRILLER HELPER Visits 0 Physical Therapy Visit Comments Patient Comments agreeable to do PT M4 PT-IP Mobility and Gait Start: 12/04/21 15:20 Freq: NEEDED Status: Active Protocol: Document 12/04/21 13:40 AB (Rec: 12/04/21 15:39 AB [id number]) PT-Bed Mobility Assessment Supine to Sit Supine to Sit Standby Assistance Sit to Supine Sit to Supine Contact Guard Assistance PT-Transfer Assessment Sit to and From Stand Sit to and from Stand Moderate Assistance,1 Person Assistance,Use of Upper Extremities Equipment Transfer Assistive Device Gait Belt,Front Wheeled Walker Orthotic/Prosthetic Devices or Brace: No Transfers Transfer Destination Bedside Commode Transfer Technique Stand Step Pivot Transfer Ability Level of Assist Moderate Assistance,Maximum Assistance,1 Person Assistance ,Use of Upper Extremities Comments Mobility Comments BP in supine: 160/70. completed supine to sit SBA. able to sit on EOB SBA. c/o nausea with (+) emesis but pt requested to use the toilet. BP in sittin/78. completed sit to stand mod A and cues and completed step transfer to bedside commode mod to max A and max cues with posterior LOB requiring mod to max to recover. completed sit to stand from bedside commode mod A and max cues and mod A for standing balance using fWW for support while NAC assisted pt with hygiene care and brief management. completed step transfer to bed using FWW mod to max A and max cues. sit to supine CGA with LE and positioned in bed. call light and table placed within reach . informed pt regarding current mobility level and assistance availability at home. Pt agreed to SNF rehab. Gait Assessment Gait Gait Assistance Required: Moderate Assistance,Maximum Assistance,1 Person Assist Distance (Feet) 2 Assistive Devices Assistive Device Gait Belt,Front Wheeled Walker Comments Gait Comments able to take steps during transfers PT-Balance Assessment Sitting Balance and Reactions Static Sitting Balance Ability Good Dynamic Sitting Balance Ability Good Standing Balance and Reactions Static Standing Balance Ability Fair Dynamic Standing Balance Ability Fair Device Used FWW M5 PT-IP Objective Assessments Start: 12/04/21 15:20 Freq: NEEDED Status: Active Protocol: Document 12/04/21 13:40 AB (Rec: 12/04/21 15:39 AB [id number]) Orientation Orientation/Cognition Level of Alertness Alert Orientation Name,Situation Language Function Ability No Deficits Noted Safety Awareness Decreased Safety Awareness Memory Description No Deficits Noted Gross Range of Motion Lower Extremity ROM Assessment Left Impaired Impairments L knee flexion: ~ 60 deg Strength Lower Extremity Strength Assessment Left Impaired Hip 4-/5 Knee 3+/5 Coordination Assessment Gross Coordination Gross Coordination WNL Sensation Assessment Sensation Gross Sensation Right LE Impaired,Left LE Impaired Sensation Description Numbness Comments Sensation Comments slight numbness on B anterior thighs Muscle Tone Muscle Tone WNL Yes M6 PT-IP Treatment Start: 12/04/21 15:20 Freq: NEEDED Status: Active Protocol: Document 12/04/21 13:40 AB (Rec: 12/04/21 15:39 AB [id number]) Physical Therapy Treatment Education Education Provided Precautions,Weight Bearing Status,Post-Op Packet,Safety M7 PT-IP Assessment and Plan Start: 12/04/21 15:20 Freq: NEEDED Status: Active Protocol: Document 12/04/21 13:40 AB (Rec: 12/04/21 15:39 AB [id number]) PT Summary Assessment and Plan Potential Rehabilitation Potential Fair Status of Condition at Evaluation Evolving Summary Impairments Pain,ROM,Strength,Balance, Coordination,Sensation,Tone, Cognition,Bed Mobility, Transfers,Gait,Activity Tolerance Assessment Summary pt s/p L TKA and just had surgery this morning. pt requiring mod to max A with mobility at this time using FWW and unable to tolerate much with c/o nausea affecting mobility. d/c plan depending on progress but at this time will need SNF rehab. pt requiring mod to max A and does not have assistance availability at home. will continue to assess progress. Goals Bed Mobility Goal Standby Assistance Transfer Goal Standby Assistance,Front Wheeled Walker Gait Goal Standby Assistance,Front Wheel Walker Gait Distance 150 Other Goals improve bed mobility, transfers and ambulation usign FWW 250 ft mod I Days to Meet Goals 5 Frequency of Treatment Frequency Of Treatment Twice a Day Treatment Plan Physical Therapy Treatment Plan Bed Mobility Training,Transfer Training,Gait Training, Therapeutic Exercise,Balance Retraining,Post Op Education, Discharge Planning,Hot or Cold Pack,Neuromuscular Re-ed, Coordination Retraining,Manual Therapy Weight Bearing Status Weight Bearing Status Weight Bear as Tolerated Allowed Weight Bearing Amount (enter % LLE WBAT or #) (%) Recommendations To Nursing Amount of Assist Needed 1 Person Assist Discharge Recommendations PT Discharge Recommendations SNF Rehab Transportation Needs at Discharge Private Vehicle
[2021-12-04] MEDS: HYDROCODONE/ACET 5/325 TABLET 1 TAB PO ×2 (14:05→17:58)
[2021-12-04] MEDS: ONDANSETRON 4 MG/2 ML INJ IV (17:47)
[2021-12-04] MEDS: DOCUSATE 100 MG CAPSULE PO (21:50)
[2021-12-04] MEDS: FAMOTIDINE 20 MG TABLET 40 MG PO (21:50)
[2021-12-04] MEDS: ASPIRIN EC 81 MG TABLET PO (21:51)
[2021-12-05] VITALS: BP 139/66; PULSE 72; RESP 17; TEMP 36.2; O2SAT 98
[2021-12-05] MEDS: IBUPROFEN 400 MG TABLET PO ×6 (01:26→21:39)
[2021-12-05] MEDS: HYDROCODONE/ACET 5/325 TABLET 1 TAB PO (01:27)
[2021-12-05 04:00] VITALS: BP 112/74; PULSE 74; RESP 18; TEMP 36.2; O2SAT 97
--- NOTE | 2021-12-05 07:24 | P.PN_ITS ---
Subjective Subjective Date Patient Seen: 12/05/21 Time Patient Seen: 07:24 Interval history: The patient reports good pain control. She reports she had difficulty m obilizing with physical therapy yesterday. Exam Vital Signs (past 8 hours): - 12/05/21 00:00 12/05/21 04:00 Temperature 97.2 F L 97.1 F L Pulse Rate 72 74 Respiratory Rate 17 18 Blood Pressure 139/66 112/74 Pulse Oximetry 98 97 Oxygen Delivery Method Room Air Oxygen Flow Rate 0 Narrative Exam Narrative: Left knee wound is dressed with no drainage on the bandage. Calf is soft. Light touch and motion are intact in the left lower extremity. Objective Labs Result Diagrams: 12/05/21 05:05 Labs: Laboratory Results - last 24 hr 12/05/21 05:05 Hgb 12.0 Hct 36.0 PFSH Medical History (Updated 05/24/20 @ 08:49 by Zeppelin Hi) Allergic rhinitis Anxiety Arm fracture, left Arthritis Depression Diverticulosis Encounter for removal of skin lesion (~2017) Former smoker Generalized headaches HLD (hyperlipidemia) Panic disorder Tinnitus Surgical History (Updated 10/17/21 @ 10:08 by Marissa Geiger RN) History of arthroscopy of both knees History of hysterectomy (~1972) History of lumbar fusion (04/30/17) Hx of bladder repair surgery Hx of fusion of cervical spine (07/29/18) Social History household members: none Smoking Status: Former smoker alcohol intake: current Assessment & Plan Post-op Postoperative Procedures: Procedures Operation Date: 12/04/21 08:45 Actual Procedure Side Surgeon p Total Knee Arthroplasty Left Sundar Addison MD Postoperative day: 1 Postoperative status: doing well and anemia Postoperative status narrative: She is stable postoperatively status post her left total knee replacement postop day 1. She has a mild post hemorrhagic anemia. She saw physical therapy yesterday and required mod to max assist for transfers. She lives alone and although she will have relatives visiting during the day she will not have anybody with her. Her anemia should resolve with normal diet. She will require an additional day at least of physical therapy prior to discharge. Postoperative plan: routine post-op care and ambulate Postoperative plan narrative: Physical therapy today with an eye towards discharge tomorrow. It is possible she will require half-way facility placement if she fails to make satisfactory progress. Time Spent With Patient Time with patient: less than 15 minutes Quality VTE Deep Vein Thrombosis/Pulmonary Embolism Present on Admission: No
[2021-12-05 07:30] VITALS: BP 135/54; PULSE 70; RESP 18; TEMP 36.4; O2SAT 100
[2021-12-05] MEDS: hydroCHLOROthiazide 25 MG TABLET 12.5 MG PO (08:19)
[2021-12-05] MEDS: FAMOTIDINE 20 MG TABLET 40 MG PO ×2 (08:19→21:38)
[2021-12-05] MEDS: ASPIRIN EC 81 MG TABLET PO ×2 (08:19→21:38)
[2021-12-05] MEDS: DOCUSATE 100 MG CAPSULE PO (08:20)
--- NOTE | 2021-12-05 09:56 | PT.IPTN ---
Current Diagnoses Unilateral primary osteoarthritis, left knee (12/04/21) Surgery Performed Operation Date: 12/04/21 08:45 Actual Procedures p Total Knee Arthroplasty(Left) - Sundar Addison MD Physical Therapy Treatment Note M2 PT-IP Current Condition Start: 12/04/21 15:20 Freq: NEEDED Status: Active Protocol: Document 12/04/21 13:40 AB (Rec: 12/04/21 15:39 AB [id number]) Physical Therapy Current Condition Current Condition Evaluation Date 12/04/21 Treatment Diagnosis s/p L TKA; difficulty in walkiing Onset Date 12/04/21 M3 PT-IP Subjective Start: 12/04/21 15:20 Freq: NEEDED Status: Active Protocol: Document 12/05/21 09:56 NBM (Rec: 12/05/21 12:49 NBM [id number]) Subjective Physical Therapy Visit Type Type Treatment Note Visit Start Time 09:43 Visit Stop Time 09:56 Total Visit Minutes 13 Number of BIOLOGICAL SCIENCES INSTRUCTOR Visits 1 Physical Therapy Visit Comments Patient Comments agreeable to do PT and reports she had been up to use bathroom. M4 PT-IP Mobility and Gait Start: 12/04/21 15:20 Freq: NEEDED Status: Active Protocol: Document 12/05/21 09:56 NBM (Rec: 12/05/21 12:49 NBM [id number]) PT-Bed Mobility Assessment Supine to Sit Supine to Sit Standby Assistance Sit to Supine Sit to Supine Contact Guard Assistance Scooting Scooting to Edge of Bed Standby Assistance PT-Transfer Assessment Sit to and From Stand Sit to and from Stand Minimal Assistance,1 Person Assistance,Use of Upper Extremities Equipment Transfer Assistive Device Gait Belt,Front Wheeled Walker Orthotic/Prosthetic Devices or Brace: No Transfers Transfer Destination Chair Transfer Technique Stand Step Pivot Transfer Ability Level of Assist Minimal Assistance,Moderate Assistance,Use of Upper Extremities Comments Mobility Comments Pt in bed upon arrival w/ HOB elevated and motivated to work w/ PT. Pt recalled exercises and completed carly ankle pumps, SAQ, heel slides, and quad sets. Supine to sit and scooting EOB SBA. Pt completed Sit<>Stand Min A w/ vc for hand placement. Pt completed standing marching w/FWW CGA. Pt then ambulated CGA ~20 ft w / FWW w/ min A for walker proximation and cues for increased step length. Pt tolerated standing balance ~ 1 min then ambulated w/ FWW CGA to chair ~7 ft. Pt sat w/ mod A w/ no cues for hand placement. Pt performed seated marching and LAQ w/ cues for controlled descent. Pt reports no lightheadedness or nausea throughout treatment session. Pt instructed to use call light when ready to transfer. Pt left in chair w/ LE elevated, ice to L knee, call light and all needs within reach. Gait Assessment Gait Gait Assistance Required: Contact Guard Assist,Minimum Assistance Distance (Feet) 27 Able to Maintain Weight Bearing Status Yes During Gait Assistive Devices Assistive Device Gait Belt,Front Wheeled Walker Orthotic/Prosthetic Devices or Brace: No Gait Deviations General Gait Pattern Decreased Stride Length,Step- to Gait Factors Limiting Gait Function Factors Limiting Gait Function Limited Range of Motion,Pain Comments Gait Comments Pt c/o knee swelling today limiting ROM. See Mobility section for further gait details. PT-Balance Assessment Sitting Balance and Reactions Static Sitting Balance Ability Good Dynamic Sitting Balance Ability Good Standing Balance and Reactions Static Standing Balance Ability Good Dynamic Standing Balance Ability Good Device Used FWW M5 PT-IP Objective Assessments Start: 12/04/21 15:20 Freq: NEEDED Status: Active Protocol: Document 12/04/21 13:40 AB (Rec: 12/04/21 15:39 AB [id number]) Orientation Orientation/Cognition Level of Alertness Alert Orientation Name,Situation Language Function Ability No Deficits Noted Safety Awareness Decreased Safety Awareness Memory Description No Deficits Noted Gross Range of Motion Lower Extremity ROM Assessment Left Impaired Impairments L knee flexion: ~ 60 deg Strength Lower Extremity Strength Assessment Left Impaired Hip 4-/5 Knee 3+/5 Coordination Assessment Gross Coordination Gross Coordination WNL Sensation Assessment Sensation Gross Sensation Right LE Impaired,Left LE Impaired Sensation Description Numbness Comments Sensation Comments slight numbness on B anterior thighs Muscle Tone Muscle Tone WNL Yes M6 PT-IP Treatment Start: 12/04/21 15:20 Freq: NEEDED Status: Active Protocol: Document 12/05/21 09:56 NBM (Rec: 12/05/21 12:49 NBM [id number]) Physical Therapy Treatment Exercises Exercises Ankle Pumps,Quad Sets,Heel Slides,Short Arc Quads,Seated Knee Flexion/Extension Knee ROM Measurement standing marching, seated marching Education Education Provided Precautions,Weight Bearing Status,Post-Op Packet,Safety M7 PT-IP Assessment and Plan Start: 12/04/21 15:20 Freq: NEEDED Status: Active Protocol: Document 12/05/21 09:56 [email or web address] (Rec: 12/05/21 12:49 NBM [id number]) PT Summary Assessment and Plan Potential Rehabilitation Potential Fair Summary Impairments Pain,ROM,Strength,Balance, Coordination,Sensation,Tone, Cognition,Bed Mobility, Transfers,Gait,Activity Tolerance Assessment Summary Pt demonstrates progress w/ no lightheadedness or nausea throughout treatment session and increased activity tolerance. Pt tolerates ambulation w/ FWW today ~27 ft w/ cues for walker proximation and increasing step length. Pt requires min A w/ sit to stand and mod A with sitting, w/ minimal cues for hand placement. D/C plan depending on progress but pt requiring min to mod A and does not have assistance availability at home. Will continue to assess progress. [ End ] Goals Bed Mobility Goal Standby Assistance Transfer Goal Standby Assistance,Front Wheeled Walker Gait Goal Standby Assistance,Front Wheel Walker Gait Distance 150 Other Goals improve bed mobility, transfers and ambulation usign FWW 250 ft mod I Days to Meet Goals 5 Frequency of Treatment Frequency Of Treatment Twice a Day Treatment Plan Physical Therapy Treatment Plan Bed Mobility Training,Transfer Training,Gait Training, Therapeutic Exercise,Balance Retraining,Post Op Education, Discharge Planning,Hot or Cold Pack,Neuromuscular Re-ed, Coordination Retraining,Manual Therapy Other Recommendations and Next Treatment ambulation using SPC/without Focus AD if appropriate; soft collar management; caregiver training if appropriate Precautions Cervical Spine Precautions Soft Collar for Comfort,Soft Collar at all Times,No Heavy Lifting,Log Roll Weight Bearing Status Weight Bearing Status Weight Bear as Tolerated Allowed Weight Bearing Amount (enter % LLE WBAT or #) (%) Recommendations To Nursing Amount of Assist Needed Standby Assistance Discharge Recommendations PT Discharge Recommendations SNF Rehab Transportation Needs at Discharge Private Vehicle
[2021-12-05] MEDS: ACETAMINOPHEN 325 MG TABLET 650 MG PO ×2 (11:34→18:09)
[2021-12-05 12:30] VITALS: BP 156/67; PULSE 70; RESP 18; TEMP 36.3; O2SAT 100
[2021-12-05] MEDS: HYDROMORPHONE 2 MG TABLET PO ×3 (13:11→21:39)
--- NOTE | 2021-12-05 13:41 | CM.DANOTE ---
Initial DCP Assessment Note Pt is a 76 yo female, resident of [place], now POD#1 from Left knee surgery by Dr Addison PCP: Emerson Santos Payer: Ian NUÑEZ/CHRISTIE PT recommending SNF at this time and patient agrees. Referrals started by LISSETTE Clark. See assessment for detail. ELIZABETH Durbin Discharge Planning/Care Management CM Discharge Assessment Start: 12/05/21 11:25 Freq: Status: Active Protocol: Document 12/05/21 13:17 [id number] (Rec: 12/05/21 13:36 [id number]) Discharge Planning Assessment Assigned Domestic Travel Consultant ELIZABETH Montague DPOA/Assigned Designee Name Angelica Dow dtr Contact Information [phone] Advance Directives? No History Provided By Patient,Medical Record Prior Living Arrangements House Household Members none Type of transportation used prior to Drives own vehicle admit Independent with ADL's Yes Is patient alert and oriented? Yes Comment Patient has planned for SNF pre-operatively. No assistance from family available. Patient has Ian NUÑEZ, choice list provided, discussed contracted vs non-contracted SNFs, [facility] reviewing and beginning attempt at SNF auth Discharge Plan Snf Facility Transportation Arrangement likely w/c van Referrals Initiated Snf Additional Comment [facility], [facility], [facility], [facility] [place], [facility] Medicare Choice List Provided Yes SNF/HH Preference Closer to home if possible, understands securing a SNF is dependent on availability, contract w/[facility] and SNF then securing the auth Has Agency SNF been contacted Yes
--- NOTE | 2021-12-05 13:44 | CM.DPNOTE ---
Sent referral to SNFs in [facility] per Milka. Avelina from [facility] called and said she will start the insur. auth. She will call us once she receives the auth approval. Amber Lopez CM Assist.
--- NOTE | 2021-12-05 14:50 | PT.IPTN ---
Current Diagnoses Unilateral primary osteoarthritis, left knee (12/04/21) Surgery Performed Operation Date: 12/04/21 08:45 Actual Procedures p Total Knee Arthroplasty(Left) - Sundar Addison MD Physical Therapy Treatment Note M2 PT-IP Current Condition Start: 12/04/21 15:20 Freq: NEEDED Status: Active Protocol: Document 12/04/21 13:40 AB (Rec: 12/04/21 15:39 AB [email or web address]) Physical Therapy Current Condition Current Condition Evaluation Date 12/04/21 Treatment Diagnosis s/p L TKA; difficulty in walkiing Onset Date 12/04/21 M3 PT-IP Subjective Start: 12/04/21 15:20 Freq: NEEDED Status: Active Protocol: Document 12/05/21 14:50 NBM (Rec: 12/05/21 15:21 NBM [id number]) Subjective Physical Therapy Visit Type Type Treatment Note Visit Start Time 14:26 Visit Stop Time 14:50 Total Visit Minutes 24 Notes B/P sitting EOB: 154/52 B/P supine EOS: 136/55 Number of DOWEL POINTER Visits 2 Physical Therapy Visit Comments Patient Comments agreeable to do PT. Pt reports she has been up to use bathroom six times d/t diahrrea, had lightheadedness the third time, and is feeling weaker. M4 PT-IP Mobility and Gait Start: 12/04/21 15:20 Freq: NEEDED Status: Active Protocol: Document 12/05/21 14:50 NBM (Rec: 12/05/21 15:21 NBM [id number]) PT-Bed Mobility Assessment Supine to Sit Supine to Sit Standby Assistance Sit to Supine Sit to Supine Contact Guard Assistance Scooting Scooting to Edge of Bed Standby Assistance PT-Transfer Assessment Sit to and From Stand Sit to and from Stand Minimal Assistance,1 Person Assistance,Use of Upper Extremities Equipment Transfer Assistive Device Gait Belt,Front Wheeled Walker Orthotic/Prosthetic Devices or Brace: No Transfers Transfer Destination Bed Transfer Technique ambulated Transfer Ability Level of Assist Minimal Assistance,Moderate Assistance,Use of Upper Extremities Comments Mobility Comments Pt in bed upon arrival w/ HOB elevated. Supine to sit and scooting EOB SBA - B/P 124/52. Pt completed Sit<>Stand Min A w/ vc for hand placement. Pt then ambulated w/ FWW CGA ~20 ft in room w/ mod cues for walker proximation, increased step length, and allowing weightbearing into L knee. Pt tolerated standing balance ~ 1 min then ambulated w/ FWW CGA ~30 ft and returned to bedside. Pt sat EOB w/ mod A w / no cues for hand placement. Pt completed sitting to supine w/ aLnny for LE elevation. Pt positioned in bed: B/P 136/55. Pt reports no lightheadedness or nausea throughout treatment session. Pt left w/ SCDs, ice to L knee, call light and all needs within reach. Gait Assessment Gait Gait Assistance Required: Contact Guard Assist,Minimum Assistance Distance (Feet) 50 Able to Maintain Weight Bearing Status Yes During Gait Assistive Devices Assistive Device Gait Belt,Front Wheeled Walker Orthotic/Prosthetic Devices or Brace: No Gait Deviations General Gait Pattern Antalgic,Decreased Stride Length Factors Limiting Gait Function Factors Limiting Gait Function Limited Range of Motion,Pain Comments Gait Comments See Mobility section. PT-Balance Assessment Sitting Balance and Reactions Static Sitting Balance Ability Good Dynamic Sitting Balance Ability Good Standing Balance and Reactions Static Standing Balance Ability Good Dynamic Standing Balance Ability Good Device Used FWW M5 PT-IP Objective Assessments Start: 12/04/21 15:20 Freq: NEEDED Status: Active Protocol: Document 12/04/21 13:40 AB (Rec: 12/04/21 15:39 AB [id number]) Orientation Orientation/Cognition Level of Alertness Alert Orientation Name,Situation Language Function Ability No Deficits Noted Safety Awareness Decreased Safety Awareness Memory Description No Deficits Noted Gross Range of Motion Lower Extremity ROM Assessment Left Impaired Impairments L knee flexion: ~ 60 deg Strength Lower Extremity Strength Assessment Left Impaired Hip 4-/5 Knee 3+/5 Coordination Assessment Gross Coordination Gross Coordination WNL Sensation Assessment Sensation Gross Sensation Right LE Impaired,Left LE Impaired Sensation Description Numbness Comments Sensation Comments slight numbness on B anterior thighs Muscle Tone Muscle Tone WNL Yes M6 PT-IP Treatment Start: 12/04/21 15:20 Freq: NEEDED Status: Active Protocol: Document 12/05/21 14:50 NBM (Rec: 12/05/21 15:21 NBM [id number]) Physical Therapy Treatment Education Education Provided Precautions,Weight Bearing Status,Post-Op Packet,Safety M7 PT-IP Assessment and Plan Start: 12/04/21 15:20 Freq: NEEDED Status: Active Protocol: Document 12/05/21 14:50 [facility] (Rec: 12/05/21 15:21 [facility] [id number]) PT Summary Assessment and Plan Potential Rehabilitation Potential Fair Summary Impairments Pain,ROM,Strength,Balance, Coordination,Sensation,Tone, Cognition,Bed Mobility, Transfers,Gait,Activity Tolerance Assessment Summary Pt increases ambulation distance to ~50ft but requires moderate cues for walker management, and min to Mod A with Sit to stand, and min A w / lower extremity elevation into bed. Pt does not have assistance available at home. Pt is getting up frequently to use bathroom due to diahrrea and is challenged w/ fatigue. At this time D/C plan recommendation is for SNF rehab. Will continue to assess progress. Goals Bed Mobility Goal Standby Assistance Transfer Goal Standby Assistance,Front Wheeled Walker Gait Goal Standby Assistance,Front Wheel Walker Gait Distance 150 Other Goals improve bed mobility, transfers and ambulation usign FWW 250 ft mod I Days to Meet Goals 5 Frequency of Treatment Frequency Of Treatment Twice a Day Treatment Plan Physical Therapy Treatment Plan Bed Mobility Training,Transfer Training,Gait Training, Therapeutic Exercise,Balance Retraining,Post Op Education, Discharge Planning,Hot or Cold Pack,Neuromuscular Re-ed, Coordination Retraining,Manual Therapy Weight Bearing Status Weight Bearing Status Weight Bear as Tolerated Allowed Weight Bearing Amount (enter % LLE WBAT or #) (%) Recommendations To Nursing Amount of Assist Needed Standby Assistance Discharge Recommendations PT Discharge Recommendations SNF Rehab Transportation Needs at Discharge Private Vehicle
[2021-12-05 16:00] VITALS: BP 141/60; PULSE 71; RESP 18; TEMP 36.7; O2SAT 98
[2021-12-05] MEDS: LOPERAMIDE 2 MG CAPSULE PO (18:09)
--- NOTE | 2021-12-05 19:03 | PC.NURSE ---
Pt is AxOx4, needs STA to the bathroom and cooperative. Drsg on L knee C/D/I. Pain controlled with her routine Tyl, Ibuprofen and PRN Dilaudid with good effect. Pt has loose stool x7 so MD is notified. put one time Imodium order. PRN Imodium 2mg PO given around 1800. No other changes. Continue monitor.
[2021-12-05 20:45] VITALS: BP 142/49; PULSE 76; RESP 18; TEMP 36.6; O2SAT 97
[2021-12-06] MEDS: ACETAMINOPHEN 325 MG TABLET 650 MG PO ×4 (00:06→18:26)
[2021-12-06 00:28] VITALS: BP 140/57; PULSE 73; RESP 18; TEMP 36; O2SAT 96
[2021-12-06] MEDS: IBUPROFEN 400 MG TABLET PO ×6 (01:05→21:11)
[2021-12-06] MEDS: HYDROMORPHONE 2 MG TABLET PO ×3 (03:57→12:57)
[2021-12-06 04:15] VITALS: BP 145/68; PULSE 69; RESP 18; TEMP 36.2; O2SAT 97
--- NOTE | 2021-12-06 07:44 | PM.DS.1 ---
History of Present Illness History of Present Illness Date Patient Seen: 12/07/21 Time Patient Seen: 09:06 Chief complaint: LEFT TKA *OPB* Narrative: Operative Date/Time/Diagnoses Date of procedure: 12/04/21 Time of procedure: 10:32 Pre-op diagnosis: Left knee osteoarthritis Post-op diagnosis: same Procedure & Clinicians Procedure: Left total knee replacement Same procedure as scheduled: Yes Indications: The patient has had progressively worsening left knee pain with radiographic changes consistent with arthritis. Non-operative management has failed and the patient has requested total knee replacement. The risks, benefits and alternatives to surgery were discussed with the patient prior to proceeding. Risks discussed included, but were not limited to, failure to relieve pain, stiffness, infection, nerve damage, deep venous thrombosis, pulmonary embolism, stroke, coma, heart attack, permanent paralysis and , as well as the potential need for eventual revision of the prosthetic. Surgeon: Sundar Addison Track Manager: Tyler Gomes Click Yes if Unassisted: No Anesthesia Type: General, Spinal and Local Operative Notes Findings: Severe tricompartmental osteoarthritis most evident in the lateral compartment with significant lateral femoral condyle hypoplasia. Closure Type: primary Specimen(s): none sent Prosthetic devices, grafts, tissues, transplants, or devices: Implants used in this procedure were manufactured by the [employer] and included the BCS II Journey total knee replacement with a size 6 left cobalt chromium femoral component, size 4 left non porous tibial base plate, a 10 mm cross-linked tibial insert and a 35 mm oval Modesta II patellar component. Applied: implant(s) Estimated Blood Loss (mL): 25 Blood products transfused: none Tourniquet time (min): 47 Discharge Providers Provider Discharge Date: 12/08/21 Primary care physician: Emerson Santos MD Consults: 12/04/21 11:15 Consult to Discharge Planning Routine Comment: Consult to Physical Therapy Evaluate & Treat Comment: Physician Instructions: postop TKA protocol Discharge provider: Najma Gallegos PA-C Summary Hospital Course Discharge Diagnosis: s/p L TKA Hospital Course: Ms Dow's hospital course was unremarkable. She was evaluated by PT throughout her stay and felt to be unsafe for discharge to home alone; it was recommended that she discharge to a fpc facility for further rehabilitation prior to homegoing. Pain was well-controlled with oral medication. Exam Vital Signs (past 8 hours): - 12/06/21 00:28 12/06/21 04:15 Temperature 96.8 F L 97.2 F L Pulse Rate 73 69 Respiratory Rate 18 18 Blood Pressure 140/57 L 145/68 H Pulse Oximetry 96 97 Oxygen Delivery Method Room Air Oxygen Flow Rate 0 Narrative Exam Narrative: 5/5 strength in hip flexors, quadriceps, hamstrings, DF, PF, EHL bilaterally. Sensation to light touch intact in BLE. Calves soft, compressible, nontender and without palpable cords or masses. Aquacel dressing with bloody drainage in distal aspect, otherwise intact. Objective Labs Result Diagrams: 12/05/21 05:05 [facility] Medical History (Updated 05/24/20 @ 08:49 by [employer]) Allergic rhinitis Anxiety Arm fracture, left Arthritis Depression Diverticulosis Encounter for removal of skin lesion (~2017) Former smoker Generalized headaches HLD (hyperlipidemia) Panic disorder Tinnitus Surgical History (Updated 12/06/21 @ 16:13 by Najma Gallegos PA-C) History of arthroscopy of both knees History of hysterectomy (~1972) History of lumbar fusion (04/30/17) Hx of bladder repair surgery Hx of fusion of cervical spine (07/29/18) Social History household members: none Smoking Status: Former smoker alcohol intake: current Discharge Assessment & Plan Assessment and Plan Assessment: s/p LEFT total knee arthroplasty. Plan of Treatment: Discharge to SNF for further rehab prior to homegoing. Per CM, SNF can accept pt on 12/08/2021 and pt will provide own transportation. Pain control w/ hydrocodone/APAP, IBPN, ice. WBAT to LLE. F/u in office in 2 weeks. Discharge Plan Discharge Plan Patient Disposition: SNF Transfer to: [facility] Transportation: Private vehicle I certify the postop hospital fpc care is medically necessary on a continuing basis for any conditions for which he/ she received care during this hospitalization.: Yes The receiving facility has agreed to accept transfer and provide medical treatment.: Yes Discharge orders & Medications Prescriptions: New acetaminophen 325 mg Tablet 650 mg PO Q8HR Qty: 240 1RF aspirin 81 mg Tablet,Delayed Release (Dr/Ec) 81 mg PO BID Qty: 90 0RF docusate sodium 100 mg Capsule 100 mg PO BID PRN (Reason: constipation) Qty: 60 2RF hydrocodone-acetaminophen 5-325 mg Tablet 1 tab PO Q4HR PRN (Reason: Pain, Moderate (4-6)) Qty: 60 0RF Rx Instructions: DO NOT EXCEED 4000mg total acetaminophen in 24 hours ibuprofen 400 mg Tablet 400 mg PO Q4HR Qty: 180 0RF hydrocodone-acetaminophen 5-325 mg Tablet 2 tab PO Q4HR PRN (Reason: Pain, Moderate (4-6)) Qty: 60 0RF Continued hydrochlorothiazide 12.5 MG tablet 12.5 mg PO QDAY Qty: 0 famotidine 40 mg Tablet 40 mg PO BID albuterol sulfate 90 mcg/actuation Hfa Aerosol Inhaler 2 puff INHALATION Q4-6H PRN (Reason: Season allergies) Label Comments: ASS NEEDED fluticasone propionate 50 mcg/actuation [place],Suspension 1 spray INTRANASAL DAILY PRN (Reason: Seasonal allergies) Label Comments: NEEDED Rx Instructions: administer into each nostril loratadine 10 mg Tablet 10 mg PO DAILY PRN (Reason: Seasonal allergies) Label Comments: NEEDED olopatadine 0.2 % Drops 1 drp OPHTHALMIC (EYE) BID PRN (Reason: Allergies) Label Comments: NEEDED Discontinued hydrocodone-acetaminophen 5-325 mg Tablet 2 tab PO Q4HR PRN (Reason: Pain, Severe (7-10)) Qty: 60 0RF acetaminophen 500 mg Tablet 500 mg PO BID PRN (Reason: Pain) Follow up/Referrals: Emerson Santos MD [Primary Care Provider] - Sundar Addison MD [Physician] - As previously scheduled (Follow up with Suzanne German PA-C, on 12/18/2021 @ 3:30 pm at [facility] in [place].) Diet/Activity/Treatments Diet: Diet as Tolerated Activity: Walk frequently! Weightbearing as tolerated to left leg. Cold/Heat Therapy: Ice to knee as needed for pain. Skin/Wound/Dressing Care Report to your healthcare provider any signs of infection, such as:: chills, fever, night sweats, unusual drainage and unusual redness Dressing: May shower. Leave Aquacel dressing in place until follow up appointment in office. No bathing or otherwise soaking incision. Call office if dressing becomes saturated inside. [facility] Rehab type: Physical therapy and Occupational therapy Visit Report/Discharge Packet Instructions: DI for Knee Replacement, DI for Prescription Opioid Use Stand Alone Forms: Surgery Discharge Discharge Data Primary Care Provider: Emerson Santos Attending Provider: Sundar Addison Quality VTE Deep Vein Thrombosis/Pulmonary Embolism Present on Admission: No
[2021-12-06 07:45] VITALS: BP 139/62; PULSE 73; RESP 16; TEMP 36.4; O2SAT 98
[2021-12-06] MEDS: hydroCHLOROthiazide 25 MG TABLET 12.5 MG PO (09:50)
[2021-12-06] MEDS: ASPIRIN EC 81 MG TABLET PO ×2 (09:52→21:11)
[2021-12-06] MEDS: FAMOTIDINE 20 MG TABLET 40 MG PO ×2 (09:53→21:11)
--- NOTE | 2021-12-06 11:18 | PT.IPTN ---
Current Diagnoses Unilateral primary osteoarthritis, left knee (12/05/21) Surgery Performed Operation Date: 12/04/21 08:45 Actual Procedures p Total Knee Arthroplasty(Left) - Sundar Addison MD Physical Therapy Treatment Note M2 PT-IP Current Condition Start: 12/04/21 15:20 Freq: NEEDED Status: Active Protocol: Document 12/06/21 10:55 SP (Rec: 12/06/21 11:51 SP [id number]) Physical Therapy Current Condition Current Condition Evaluation Date 12/04/21 Treatment Diagnosis s/p L TKA; difficulty in walkiing Onset Date 12/04/21 M3 PT-IP Subjective Start: 12/04/21 15:20 Freq: NEEDED Status: Active Protocol: Document 12/06/21 10:55 SP (Rec: 12/06/21 11:51 SP [id number]) Subjective Physical Therapy Visit Type Type Treatment Note Visit Start Time 10:55 Visit Stop Time 11:18 Total Visit Minutes 23 Notes supine: BP 145/70 HR 72 SaO2 95%. Number of CIRCUIT MANAGER Visits 3 Physical Therapy Visit Comments Patient Comments Pt agreeable to working with therapy. She reports has been up to bathroom but less lately needed, feels unsteady on her feet and needing someone with her for safety not fall. Patient Goals Go to SNF to improve strength, balance and functional endurance before going home. M4 PT-IP Mobility and Gait Start: 12/04/21 15:20 Freq: NEEDED Status: Active Protocol: Document 12/06/21 10:55 SP (Rec: 12/06/21 11:51 SP [id number]) PT-Bed Mobility Assessment Supine to Sit Supine to Sit Standby Assistance Scooting Scooting to Edge of Bed Standby Assistance PT-Transfer Assessment Sit to and From Stand Sit to and from Stand Contact Guard Assistance,1 Person Assistance,Use of Upper Extremities Equipment Transfer Assistive Device Gait Belt,Front Wheeled Walker Orthotic/Prosthetic Devices or Brace: No Transfers Transfer Destination Chair,Toilet Transfer Technique ambulated with FWW Transfer Ability Level of Assist Standby Assistance,Contact Guard Assistance,Minimal Assistance,1 Person Assistance ,Use of Upper Extremities Comments Mobility Comments CIRCUIT MANAGER instructed post op exercises with use of HO for recall/form. Elevated supine> sit, scoot to R side bed SBA with ed/provided gait belt loop on LLE for self ease assist to EOB. Sit>stand SBA, cues for push from bed to stand. Gait around room w/ FWW CGA with good self cues for knee flexion and foot clearance. SPT back up to toilet use grab bar cues slow descent SBA LLE positioned in front. Voided/ self pericare and donned underwear self, ed surgical LE first seated. Sit> stand CGA use grab bar and FWW . Static stand underwear mgt, CGA with cues 1 UE support on grab bar/FWW for balance stability noted little unsteady but no LOB. Gait to sink w/ FWW CGA>SBA, washed hands unsupported. Gait further into hallway 45 ft and back to chair in room. Pt LOB retro/side Nick recovery w/ use FWW, cues for maintain trunk over feet and small steps during pivot. Pt good slow sit into chair with good hand placement when return to room. Pt stated still feels unsteady getting around room and asks nursing to be with her for safety, educated continue use of gait belt for safety. Recommending SNF for increased strength and functional mobility balance before returning home. Will continue to assess progress. Pt had call light and all needs in reach before left. Pt stated didn't need chair alarm, calls nursing for support for safety due to nervous of falling. Notified nursing no chair alarm, checks for safety. Gait Assessment Gait Gait Assistance Required: Standby Assistance,Contact Guard Assist,Minimum Assistance Distance (Feet) 90 Able to Maintain Weight Bearing Status Yes During Gait Assistive Devices Assistive Device Gait Belt,Front Wheeled Walker Orthotic/Prosthetic Devices or Brace: No Gait Deviations General Gait Pattern Antalgic,Decreased Stride Length,Decreased Feet Clearance,Lateral Trunk Lean Factors Limiting Gait Function Factors Limiting Gait Function Decreased Activity Tolerance, Decreased Strength,Limited Range of Motion,Pain,Poor Balance Comments Gait Comments LOB x1 during pivot usingFWW, CGA- Min for recovery. See mobility comments. Stair Climbing Assessment Comments Stair Climbing Comments no stairs at home to assess. PT-Balance Assessment Sitting Balance and Reactions Static Sitting Balance Ability Good Dynamic Sitting Balance Ability Good Standing Balance and Reactions Static Standing Balance Ability Good Dynamic Standing Balance Ability Good Device Used FWW M5 PT-IP Objective Assessments Start: 12/04/21 15:20 Freq: NEEDED Status: Active Protocol: Document 12/04/21 13:40 AB (Rec: 12/04/21 15:39 AB [id number]) Orientation Orientation/Cognition Level of Alertness Alert Orientation Name,Situation Language Function Ability No Deficits Noted Safety Awareness Decreased Safety Awareness Memory Description No Deficits Noted Gross Range of Motion Lower Extremity ROM Assessment Left Impaired Impairments L knee flexion: ~ 60 deg Strength Lower Extremity Strength Assessment Left Impaired Hip 4-/5 Knee 3+/5 Coordination Assessment Gross Coordination Gross Coordination WNL Sensation Assessment Sensation Gross Sensation Right LE Impaired,Left LE Impaired Sensation Description Numbness Comments Sensation Comments slight numbness on B anterior thighs Muscle Tone Muscle Tone WNL Yes M6 PT-IP Treatment Start: 12/04/21 15:20 Freq: NEEDED Status: Active Protocol: Document 12/06/21 10:55 SP (Rec: 12/06/21 11:51 SP [id number]) Physical Therapy Treatment Exercises Exercises Ankle Pumps,Quad Sets,Heel Slides,Short Arc Quads,Seated Knee Flexion/Extension Education Education Provided Precautions,Weight Bearing Status,Post-Op Packet,Safety M7 PT-IP Assessment and Plan Start: 12/04/21 15:20 Freq: NEEDED Status: Active Protocol: Document 12/06/21 10:55 SP (Rec: 12/06/21 11:51 SP [id number]) PT Summary Assessment and Plan Potential Rehabilitation Potential Fair Status of Condition at Evaluation Evolving Summary Impairments Pain,ROM,Strength,Balance, Coordination,Sensation,Tone, Cognition,Bed Mobility, Transfers,Gait,Activity Tolerance Progress Towards Goals Progressing Toward Goals,Slow Progress due to Pain,Slow Progress due to Activity Tolerance Assessment Summary Pt SBA bed mob, transfers/ gait CG- Min A 90 ft total using FWW. LOB x1 during pivot in hallway CG- Min A for recovery, unsteady LLE during midstance phase at times. Pt doesn't have anyone at home to assist her, recommending SNF for strengthening/ functional mobility progression before returning home. Goals Bed Mobility Goal Standby Assistance Transfer Goal Standby Assistance,Front Wheeled Walker Gait Goal Standby Assistance,Front Wheel Walker Gait Distance 150 Other Goals improve bed mobility, transfers and ambulation usign FWW 250 ft mod I Days to Meet Goals 5 Frequency of Treatment Frequency Of Treatment Twice a Day Treatment Plan Physical Therapy Treatment Plan Bed Mobility Training,Transfer Training,Gait Training, Therapeutic Exercise,Balance Retraining,Post Op Education, Discharge Planning,Hot or Cold Pack,Neuromuscular Re-ed, Coordination Retraining,Manual Therapy Other Recommendations and Next Treatment LE ex, further distance gait w Focus / fww, balance activities, CP Precautions Other Precautions fall risk, nursing SBA/CGA durign all mobility. Weight Bearing Status Weight Bearing Status Weight Bear as Tolerated Allowed Weight Bearing Amount (enter % LLE WBAT or #) (%) Recommendations To Nursing Amount of Assist Needed Standby Assistance,1 Person Assist Discharge Recommendations PT Discharge Recommendations SNF Rehab Transportation Needs at Discharge Private Vehicle
--- NOTE | 2021-12-06 14:58 | PT.IPTN ---
Current Diagnoses Unilateral primary osteoarthritis, left knee (12/05/21) Surgery Performed Operation Date: 12/04/21 08:45 Actual Procedures p Total Knee Arthroplasty(Left) - Sundar Addison MD Physical Therapy Treatment Note M2 PT-IP Current Condition Start: 12/04/21 15:20 Freq: NEEDED Status: Active Protocol: Document 12/06/21 14:38 SP (Rec: 12/06/21 15:51 SP [id number]) Physical Therapy Current Condition Current Condition Evaluation Date 12/04/21 Treatment Diagnosis s/p L TKA; difficulty in walkiing Onset Date 12/04/21 M3 PT-IP Subjective Start: 12/04/21 15:20 Freq: NEEDED Status: Active Protocol: Document 12/06/21 14:38 SP (Rec: 12/06/21 15:51 SP [id number]) Subjective Physical Therapy Visit Type Type Treatment Note Visit Start Time 14:38 Visit Stop Time 14:58 Total Visit Minutes 20 Number of NURSE OFFICE Visits 4 Physical Therapy Visit Comments Patient Comments Pt agreeable to mobilizing with therapy. Patient Goals Go to SNF to improve strength, balance and functional endurance before going home. M4 PT-IP Mobility and Gait Start: 12/04/21 15:20 Freq: NEEDED Status: Active Protocol: Document 12/06/21 14:38 SP (Rec: 12/06/21 15:51 SP [id number]) PT-Bed Mobility Assessment Sit to Supine Sit to Supine Standby Assistance,Bedrails Scooting Scooting Up and Down in Bed Standby Assistance PT-Transfer Assessment Sit to and From Stand Sit to and from Stand Standby Assistance,Contact Guard Assistance,Use of Upper Extremities Equipment Transfer Assistive Device Gait Belt,Front Wheeled Walker Orthotic/Prosthetic Devices or Brace: No Transfers Transfer Destination Bed Transfer Technique ambulated with FWW Transfer Ability Level of Assist Standby Assistance,Contact Guard Assistance,Use of Upper Extremities Comments Mobility Comments NURSE OFFICE instructed seated HEP pre mobility: heel slides AROM approx 70 deg flexion L knee, HRTR. Sit>stand from chair close SBA using FWW improved strength wt shift over BLE w/ Mod effort UE support from chair arms. Gait into hallway w/ FWW close SBA step over step patterning 85 ft total back to R side of bed, stand> sit cued sit closer to HOB, good slow control sit. She was able to loop gait belt over LLE and self support into bed. When lateral and superior scooting c/o R hamstring cramp knee bent WB into bed self support, NURSE OFFICE provided manual HS stretch on into hip flexion then added APs with good muscle relaxing results. Pt had call light and all needs in reach. Donned bed alarm for safety. Pt is not I with FWW needs to be to return home, decreased activity tolerance and occasional cuing. Recommend SNF for strengthening and increase activity tolerance. Gait Assessment Gait Gait Assistance Required: Standby Assistance,Contact Guard Assist Distance (Feet) 85 Able to Maintain Weight Bearing Status Yes During Gait Assistive Devices Assistive Device Gait Belt,Front Wheeled Walker Orthotic/Prosthetic Devices or Brace: No Gait Deviations General Gait Pattern Antalgic,Decreased Stride Length Factors Limiting Gait Function Factors Limiting Gait Function Decreased Activity Tolerance, Decreased Strength,Limited Range of Motion,Pain Comments Gait Comments IMproved small pivot stepping during turn in hallway with trunk over B feet centered in FWW SBA. SLower pacing, stated felt really tired requested return to her bed to rest. Stair Climbing Assessment Comments Stair Climbing Comments no stairs at home to assess. PT-Balance Assessment Sitting Balance and Reactions Static Sitting Balance Ability Normal Dynamic Sitting Balance Ability Good Standing Balance and Reactions Static Standing Balance Ability Good Dynamic Standing Balance Ability Good Device Used FWW M5 PT-IP Objective Assessments Start: 12/04/21 15:20 Freq: NEEDED Status: Active Protocol: Document 12/04/21 13:40 AB (Rec: 12/04/21 15:39 AB [id number]) Orientation Orientation/Cognition Level of Alertness Alert Orientation Name,Situation Language Function Ability No Deficits Noted Safety Awareness Decreased Safety Awareness Memory Description No Deficits Noted Gross Range of Motion Lower Extremity ROM Assessment Left Impaired Impairments L knee flexion: ~ 60 deg Strength Lower Extremity Strength Assessment Left Impaired Hip 4-/5 Knee 3+/5 Coordination Assessment Gross Coordination Gross Coordination WNL Sensation Assessment Sensation Gross Sensation Right LE Impaired,Left LE Impaired Sensation Description Numbness Comments Sensation Comments slight numbness on B anterior thighs Muscle Tone Muscle Tone WNL Yes M6 PT-IP Treatment Start: 12/04/21 15:20 Freq: NEEDED Status: Active Protocol: Document 12/06/21 14:38 SP (Rec: 12/06/21 15:51 SP [id number]) Physical Therapy Treatment Exercises Exercises Seated Knee Flexion/Extension Education Education Provided Precautions,Weight Bearing Status,Safety Other Treatments Other Treatment Performed seated HRTR x5 reps each. M7 PT-IP Assessment and Plan Start: 12/04/21 15:20 Freq: NEEDED Status: Active Protocol: Document 12/06/21 14:38 SP (Rec: 12/06/21 15:51 SP [id number]) PT Summary Assessment and Plan Potential Rehabilitation Potential Fair Status of Condition at Evaluation Evolving Summary Impairments Pain,ROM,Strength,Balance, Coordination,Sensation,Tone, Cognition,Bed Mobility, Transfers,Gait,Activity Tolerance Progress Towards Goals Progressing Toward Goals,Slow Progress due to Pain,Slow Progress due to Activity Tolerance Assessment Summary Pt is not I would need to be for returning home, requires close SBA during all activity w/ FWW, requires cuing at times for stability positioning w/ FWW, decreased pain with gait belt on LLE for mobilizing self assist LLE in /out bed. Pt would benefit from skilled therapy to increase strength, balance and edurance before going home. Pt told by caret [facility]. Will continue to assess. Goals Bed Mobility Goal Standby Assistance Transfer Goal Standby Assistance,Front Wheeled Walker Gait Goal Standby Assistance,Front Wheel Walker Gait Distance 150 Other Goals improve bed mobility, transfers and ambulation usign FWW 250 ft mod I Days to Meet Goals 5 Frequency of Treatment Frequency Of Treatment Twice a Day Treatment Plan Physical Therapy Treatment Plan Bed Mobility Training,Transfer Training,Gait Training, Therapeutic Exercise,Balance Retraining,Post Op Education, Discharge Planning,Hot or Cold Pack,Neuromuscular Re-ed, Coordination Retraining,Manual Therapy Other Recommendations and Next Treatment LE ex, distance with FWW vs Focus assess LRAD, balance activities, CP PRN Precautions Other Precautions fall risk, nursing SBA/CGA durign all mobility. Weight Bearing Status Weight Bearing Status Weight Bear as Tolerated Allowed Weight Bearing Amount (enter % LLE WBAT or #) (%) Recommendations To Nursing Amount of Assist Needed Standby Assistance Discharge Recommendations PT Discharge Recommendations SNF Rehab Transportation Needs at Discharge Private Vehicle
[2021-12-06 16:00] VITALS: BP 131/53; PULSE 70; RESP 16; TEMP 36.6; O2SAT 97
--- NOTE | 2021-12-06 16:05 | CM.DPNOTE ---
Addendum entered by ELIZABETH Holguin 12/06/21 16:23: ADD: Patient is a [place] member of the [facility] [place]. Steven Lombardi# [phone] Original Note: DCP Note This afternoon at 1400; discussed case with Avelina at [facility] and she had just gotten the authorization from [facility]. [facility] cannot accept patient Thursday or Thursday and so admission would need to be delayed until Thursday12.08.21. In addition, patient would need to find her own transportation Spoke w/RN Brea and patient re above. Patient willing to consider return home but admits, tearfully, she will not have ANY help as her friends and family are all working time clock inspector. PT continues to recommend SNF and this QUALITY CONTROLLER and CM team have not gotten an alt. SNF to accept this patient for rehab and secure auth through [place], as [facility] has Ultimately, patient is not safe today to discharge home and so will likely be admitted until Thursday12.08.21 until she can safely discharge to rehab for recovery Patient aware she will need a ride to [facility] Thursday and is calling family today to arrange. Emailed Avelina at [facility] a copy of patient's COVID vax card- patient has been double vaxed and double boosted JW
--- NOTE | 2021-12-06 16:10 | P.PN_ITS ---
Subjective Subjective Date Patient Seen: 12/06/21 Time Patient Seen: 07:00 Interval history: Pt sitting up in bed, feels she would be able to discharge home rather than SNF. She lives alone but has nieces that live nearby who can help. Her late had a stroke and her house was modified to accommodate his disabilities with a ramp to get in and side rails throughout. Exam Vital Signs (past 8 hours): Oxygen Delivery Method Room Air Oxygen Flow Rate 0 Narrative Exam Narrative: 5/5 strength in DF, PF, EHL on left. 4/5 hip flexors, quadriceps, hamstrings. Sensation to light touch intact in BLE. Calves soft, compressible, nontender and without palpable cords or masses. Aquacel and NATHANIEL wrap CDI. Objective Labs Result Diagrams: 12/05/21 05:05 [facility] Medical History (Updated 05/24/20 @ 08:49 by [employer] [place]) Allergic rhinitis Anxiety Arm fracture, left Arthritis Depression Diverticulosis Encounter for removal of skin lesion (~2017) Former smoker Generalized headaches HLD (hyperlipidemia) Panic disorder Tinnitus Surgical History (Updated 12/06/21 @ 16:13 by ELLIOTT MaravillaC) History of arthroscopy of both knees History of hysterectomy (~1972) History of lumbar fusion (04/30/17) Hx of bladder repair surgery Hx of fusion of cervical spine (07/29/18) Social History household members: none Smoking Status: Former smoker alcohol intake: current Assessment & Plan Post-op Assessment and plan (1) Total knee replacement status: Assessment and Plan narrative: Despite pt wishes, PT evaluated twice today and feels pt needs SNF rehab. Per CM note from yesterday, requests have been sent to SNFs, waiting to hear back; d/c pending acceptance. Continue PT, multimodal pain control, ASA BID and SCDs for VTE prophylaxis. Postoperative Procedures: Procedures Operation Date: 12/04/21 08:45 Actual Procedure Side Surgeon p Total Knee Arthroplasty Left Sundar Addison MD Postoperative day: 2 Quality VTE Deep Vein Thrombosis/Pulmonary Embolism Present on Admission: No
[2021-12-06 20:36] VITALS: BP 127/43; PULSE 61; RESP 18; TEMP 36.6; O2SAT 100
[2021-12-06 23:29] VITALS: BP 127/47; PULSE 77; RESP 17; TEMP 36.6; O2SAT 97
[2021-12-07] MEDS: ACETAMINOPHEN 325 MG TABLET 650 MG PO ×2 (00:12→05:54)
[2021-12-07] MEDS: IBUPROFEN 400 MG TABLET PO ×6 (00:13→20:54)
[2021-12-07] MEDS: HYDROMORPHONE 2 MG TABLET PO ×2 (00:13→03:32)
[2021-12-07 03:33] VITALS: BP 136/58; PULSE 77; RESP 17; TEMP 36.2; O2SAT 95
[2021-12-07 07:58] VITALS: BP 159/66; PULSE 69; RESP 16; TEMP 36.3; O2SAT 99
[2021-12-07] MEDS: hydroCHLOROthiazide 25 MG TABLET 12.5 MG PO (08:42)
[2021-12-07] MEDS: FAMOTIDINE 20 MG TABLET 40 MG PO ×2 (08:43→20:53)
[2021-12-07] MEDS: ASPIRIN EC 81 MG TABLET PO ×2 (08:44→20:55)
--- NOTE | 2021-12-07 09:40 | PT.IPTN ---
Current Diagnoses Unilateral primary osteoarthritis, left knee (12/05/21) Presence of unspecified artificial knee joint (12/05/21) Surgery Performed Operation Date: 12/04/21 08:45 Actual Procedures p Total Knee Arthroplasty(Left) - Sundar Addison MD Physical Therapy Treatment Note M2 PT-IP Current Condition Start: 12/04/21 15:20 Freq: NEEDED Status: Active Protocol: Document 12/07/21 09:12 SP (Rec: 12/07/21 11:20 SP [id number]) Physical Therapy Current Condition Current Condition Evaluation Date 12/04/21 Treatment Diagnosis s/p L TKA; difficulty in walkiing Onset Date 12/04/21 M3 PT-IP Subjective Start: 12/04/21 15:20 Freq: NEEDED Status: Active Protocol: Document 12/07/21 09:12 SP (Rec: 12/07/21 11:20 SP [id number]) Subjective Physical Therapy Visit Type Type Treatment Note Visit Start Time 09:12 Visit Stop Time 09:40 Total Visit Minutes 28 Notes Symptoms of nausea with mobility. Vitals: supine: BP 152/51 HR 70 post mobility: BP146/60 HR 75. Number of BOX SPRING UPHOLSTERER Visits 5 Physical Therapy Visit Comments Patient Comments Pt agreeable to working with therapy. Pt reports pain L knee mid range pain and noted bruising swelling more L knee where tape was on skin and below knee. Patient Goals Go to SNF to improve strength, balance and functional endurance before going home. M4 PT-IP Mobility and Gait Start: 12/04/21 15:20 Freq: NEEDED Status: Active Protocol: Document 12/07/21 09:12 SP (Rec: 12/07/21 11:20 SP [id number]) PT-Bed Mobility Assessment Supine to Sit Supine to Sit Standby Assistance Scooting Scooting to Edge of Bed Standby Assistance PT-Transfer Assessment Sit to and From Stand Sit to and from Stand Standby Assistance,Contact Guard Assistance,Use of Upper Extremities Equipment Transfer Assistive Device Gait Belt,Front Wheeled Walker Orthotic/Prosthetic Devices or Brace: No Transfers Transfer Destination Chair,Toilet Transfer Technique ambulated with FWW Transfer Ability Level of Assist Standby Assistance,Use of Upper Extremities Comments Mobility Comments SBA elevated HOB, little BUE supporting LLE while scoot R EOB. Sit>stand SBA-CGA due to reported nausea EC and heavier UE WB on FWW, CGA for safety. CUed keep eyes open for safety balance. Gait to bathroom w/ FWW 20 ft, SSPT backing up to toilet, stand undergarment mgt and sit toilet close SBA. Self pericare seated, Sit>stand, gait to sink 10 ft w/FWW close SBA then returned to front chair 5 ft. Balance testing EO head turns, EC 30 se NBOS sways but no LOB, stagger stance trunk sways and LOB CGA and use FWW recovery. Pt report still little nausea needed seated rest 2 min. Pt agreeable to further gait into hallway 90 ft w/ FWW, close SBA, little trunk sways but no LOB, good smallstep pivoting and FWW repositioning self. Pt returned to chair in room, assisted elevation BLEs and provided CP to L knee. Pt reported stil felt nauseous, vitals stable. Pt had call light and all needs in reach. Notified nursing nausea and unsteady trunk upright. Will continue to assess progress. Recommending SNF due to unsteady and nausea symptoms during mobilitiy, fall risk and lives alone with no one to assist her. Gait Assessment Gait Gait Assistance Required: Standby Assistance,1 Person Assist Distance (Feet) 90 Able to Maintain Weight Bearing Status Yes During Gait Assistive Devices Assistive Device Gait Belt,Front Wheeled Walker Orthotic/Prosthetic Devices or Brace: No Gait Deviations General Gait Pattern Antalgic,Decreased Stride Length,Lateral Trunk Lean Factors Limiting Gait Function Factors Limiting Gait Function Decreased Activity Tolerance, Decreased Strength,Limited Range of Motion,Pain,Poor Balance Comments Gait Comments see mobility comments. Stair Climbing Assessment Comments Stair Climbing Comments no stairs at home to assess. PT-Balance Assessment Sitting Balance and Reactions Static Sitting Balance Ability Normal Dynamic Sitting Balance Ability Good Standing Balance and Reactions Static Standing Balance Ability Good Dynamic Standing Balance Ability Fair Device Used FWW Functional Assessments Other Functional Tests Performed -NBOS: head turns, EC up to 30s smallsways but no LOB -Narrow Stagger stance: EO head turns LOB each foot position CGA recovery. M5 PT-IP Objective Assessments Start: 12/04/21 15:20 Freq: NEEDED Status: Active Protocol: Document 12/04/21 13:40 AB (Rec: 12/04/21 15:39 AB [id number]) Orientation Orientation/Cognition Level of Alertness Alert Orientation Name,Situation Language Function Ability No Deficits Noted Safety Awareness Decreased Safety Awareness Memory Description No Deficits Noted Gross Range of Motion Lower Extremity ROM Assessment Left Impaired Impairments L knee flexion: ~ 60 deg Strength Lower Extremity Strength Assessment Left Impaired Hip 4-/5 Knee 3+/5 Coordination Assessment Gross Coordination Gross Coordination WNL Sensation Assessment Sensation Gross Sensation Right LE Impaired,Left LE Impaired Sensation Description Numbness Comments Sensation Comments slight numbness on B anterior thighs Muscle Tone Muscle Tone WNL Yes M6 PT-IP Treatment Start: 12/04/21 15:20 Freq: NEEDED Status: Active Protocol: Document 12/07/21 09:12 SP (Rec: 12/07/21 11:20 SP [id number]) Physical Therapy Treatment Exercises Exercises Ankle Pumps,Quad Sets,Heel Slides,Seated Knee Flexion/ Extension Knee ROM Measurement approx 70 deg flexion LLE Education Education Provided Precautions,Weight Bearing Status,Safety M7 PT-IP Assessment and Plan Start: 12/04/21 15:20 Freq: NEEDED Status: Active Protocol: Document 12/07/21 09:12 SP (Rec: 12/07/21 11:20 SP [id number]) PT Summary Assessment and Plan Potential Rehabilitation Potential Fair Status of Condition at Evaluation Evolving Summary Impairments Pain,ROM,Strength,Balance, Coordination,Sensation,Tone, Cognition,Bed Mobility, Transfers,Gait,Activity Tolerance Progress Towards Goals Progressing Toward Goals,Slow Progress due to Pain,Slow Progress due to Medical Issues ,Slow Progress due to Activity Tolerance Assessment Summary Pt is SBA during all mobility w/ FWW 90 ft, having unsteady and nausea during position changes and mobility, balance testing LOB stationary dynamic . Pt would benefit from skilled therapy SNF to improve functional strengthen, balance. WIll continue to assess progress. Goals Bed Mobility Goal Standby Assistance Transfer Goal Standby Assistance,Front Wheeled Walker Gait Goal Standby Assistance,Front Wheel Walker Gait Distance 150 Other Goals improve bed mobility, transfers and ambulation usign FWW 250 ft mod I Days to Meet Goals 5 Frequency of Treatment Frequency Of Treatment Twice a Day Treatment Plan Physical Therapy Treatment Plan Bed Mobility Training,Transfer Training,Gait Training, Therapeutic Exercise,Balance Retraining,Post Op Education, Discharge Planning,Hot or Cold Pack,Neuromuscular Re-ed, Coordination Retraining,Manual Therapy Other Recommendations and Next Treatment LE ex, distance with FWW vs Focus assess LRAD, balance activities, CP PRN Precautions Other Precautions fall risk, nursing SBA/CGA durign all mobility. Weight Bearing Status Weight Bearing Status Weight Bear as Tolerated Allowed Weight Bearing Amount (enter % LLE WBAT or #) (%) Recommendations To Nursing Amount of Assist Needed Standby Assistance,1 Person Assist Discharge Recommendations PT Discharge Recommendations SNF Rehab Transportation Needs at Discharge Private Vehicle
[2021-12-07] MEDS: ONDANSETRON 4 MG ODT PO (09:44)
[2021-12-07 11:45] VITALS: BP 164/63; PULSE 72; RESP 16; TEMP 36.6; O2SAT 99
[2021-12-07] MEDS: HYDROCODONE/ACET 5/325 TABLET 2 TAB PO (13:12)
--- NOTE | 2021-12-07 14:28 | PT.IPTN ---
Current Diagnoses Unilateral primary osteoarthritis, left knee (12/05/21) Presence of unspecified artificial knee joint (12/05/21) Surgery Performed Operation Date: 12/04/21 08:45 Actual Procedures p Total Knee Arthroplasty(Left) - Sundar Addison MD Physical Therapy Treatment Note M2 PT-IP Current Condition Start: 12/04/21 15:20 Freq: NEEDED Status: Active Protocol: Document 12/07/21 14:25 SP (Rec: 12/07/21 15:25 SP [id number]) Physical Therapy Current Condition Current Condition Evaluation Date 12/04/21 Treatment Diagnosis s/p L TKA; difficulty in walkiing Onset Date 12/04/21 M3 PT-IP Subjective Start: 12/04/21 15:20 Freq: NEEDED Status: Active Protocol: Document 12/07/21 14:25 SP (Rec: 12/07/21 15:25 SP [id number]) Subjective Physical Therapy Visit Type Type Treatment Note Visit Start Time 14:25 Visit Stop Time 14:28 Total Visit Minutes 23 Notes Reported 7-8/10 L knee pain, increased 8/10 post knee unstable shift during gait. Number of DECORATOR CONSULTANT Visits 6 Physical Therapy Visit Comments Patient Comments Pt sleeping when arrived, stated was premedicated not long ago, agreeable to PT. Patient Goals Go to SNF to improved stability before going home, feels nervous going to fall. M4 PT-IP Mobility and Gait Start: 12/04/21 15:20 Freq: NEEDED Status: Active Protocol: Document 12/07/21 14:25 SP (Rec: 12/07/21 15:25 SP [id number]) PT-Bed Mobility Assessment Supine to Sit Supine to Sit Standby Assistance Scooting Scooting to Edge of Bed Standby Assistance PT-Transfer Assessment Sit to and From Stand Sit to and from Stand Standby Assistance,Use of Upper Extremities Equipment Transfer Assistive Device Gait Belt,Front Wheeled Walker Orthotic/Prosthetic Devices or Brace: No Transfers Transfer Destination Chair,Toilet Transfer Technique ambulated with FWW Transfer Ability Level of Assist Standby Assistance,Use of Upper Extremities Comments Mobility Comments Completed post op ex: quad sets, heel slide AROM 48 deg/ 71 deg w/ strap assist. Used strap for self LLE mobility and scoot to EOB. Pt requested /completed don personal sleepware seated EOB. Sit> stand SBA w/ FWW gait to bathroom, self pant mgt and slow descent sit w/ use grab bar, self pericare and stand. Gait to sink 8 ft w/ FWW SBA. Further gait in hallway 150 ft total SBA w/ FWW with good small step pivot, L knee unsteady shift almost buckled reported increase pain during midstance x1 close SBA. Pt returned to bed SBA. Had all needs in reach when left. Gait Assessment Gait Gait Assistance Required: Standby Assistance Distance (Feet) 150 Able to Maintain Weight Bearing Status Yes During Gait Assistive Devices Assistive Device Gait Belt,Front Wheeled Walker Orthotic/Prosthetic Devices or Brace: No Gait Deviations General Gait Pattern Antalgic,Decreased Stride Length Factors Limiting Gait Function Factors Limiting Gait Function Decreased Activity Tolerance, Decreased Strength,Limited Range of Motion,Pain Comments Gait Comments Reciprocal stepping hallway gait w/FWW, 1 time L knee shift almost buckle during midstance causing increased pain, heavier UE WB for comfort, cued quad fac awareness during WB for stability. Stair Climbing Assessment Comments Stair Climbing Comments no stairs at home to assess. PT-Balance Assessment Sitting Balance and Reactions Static Sitting Balance Ability Normal Dynamic Sitting Balance Ability Good Standing Balance and Reactions Static Standing Balance Ability Good Dynamic Standing Balance Ability Fair Device Used FWW Functional Assessments Functional Tests 5 Times Sit to Stand assess next tx, also for strengthening. M5 PT-IP Objective Assessments Start: 12/04/21 15:20 Freq: NEEDED Status: Active Protocol: Document 12/04/21 13:40 AB (Rec: 12/04/21 15:39 AB [id number]) Orientation Orientation/Cognition Level of Alertness Alert Orientation Name,Situation Language Function Ability No Deficits Noted Safety Awareness Decreased Safety Awareness Memory Description No Deficits Noted Gross Range of Motion Lower Extremity ROM Assessment Left Impaired Impairments L knee flexion: ~ 60 deg Strength Lower Extremity Strength Assessment Left Impaired Hip 4-/5 Knee 3+/5 Coordination Assessment Gross Coordination Gross Coordination WNL Sensation Assessment Sensation Gross Sensation Right LE Impaired,Left LE Impaired Sensation Description Numbness Comments Sensation Comments slight numbness on B anterior thighs Muscle Tone Muscle Tone WNL Yes M6 PT-IP Treatment Start: 12/04/21 15:20 Freq: NEEDED Status: Active Protocol: Document 12/07/21 14:25 SP (Rec: 12/07/21 15:25 SP [id number]) Physical Therapy Treatment Exercises Exercises Ankle Pumps,Quad Sets,Heel Slides,Seated Knee Flexion/ Extension Knee ROM Measurement L AROM 48 deg 71 deg AAROM w/ strap assist Education Education Provided Precautions,Weight Bearing Status,Safety M7 PT-IP Assessment and Plan Start: 12/04/21 15:20 Freq: NEEDED Status: Active Protocol: Document 12/07/21 14:25 SP (Rec: 12/07/21 15:25 SP [id number]) PT Summary Assessment and Plan Potential Rehabilitation Potential Fair Status of Condition at Evaluation Evolving Summary Impairments Pain,ROM,Strength,Balance, Coordination,Sensation,Tone, Cognition,Bed Mobility, Transfers,Gait,Activity Tolerance Progress Towards Goals Progressing Toward Goals,Slow Progress due to Pain,Slow Progress due to Activity Tolerance Assessment Summary Pt is sBA during all mobility, c/o L knee unstable lateral shift during midstance, no LOB but required close SBA rest distance. Pt would benefit from continued skilled SNF for progress strength and stability functional mobility before going home, no one to assist her. Goals Bed Mobility Goal Standby Assistance Transfer Goal Standby Assistance,Front Wheeled Walker Gait Goal Standby Assistance,Front Wheel Walker Gait Distance 150 Other Goals improve bed mobility, transfers and ambulation usign FWW 250 ft mod I Days to Meet Goals 5 Frequency of Treatment Frequency Of Treatment Twice a Day Treatment Plan Physical Therapy Treatment Plan Bed Mobility Training,Transfer Training,Gait Training, Therapeutic Exercise,Balance Retraining,Post Op Education, Discharge Planning,Hot or Cold Pack,Neuromuscular Re-ed, Coordination Retraining,Manual Therapy Other Recommendations and Next Treatment LE ex, 5 x STS, distance with Focus FWW vs assess LRAD, balance activities, CP PRN Precautions Other Precautions fall risk, nursing SBA/CGA durign all mobility. Weight Bearing Status Weight Bearing Status Weight Bear as Tolerated Allowed Weight Bearing Amount (enter % LLE WBAT or #) (%) Recommendations To Nursing Amount of Assist Needed Standby Assistance Discharge Recommendations PT Discharge Recommendations SNF Rehab Transportation Needs at Discharge Private Vehicle
[2021-12-07 17:07] LABS: COVID19 -Nasal RAPID Negative (Negative)
[2021-12-07 17:48] VITALS: BP 176/77; PULSE 75; RESP 16; TEMP 36.7; O2SAT 99
[2021-12-07] MEDS: DOCUSATE 100 MG CAPSULE PO (20:54)
[2021-12-07 21:00] VITALS: BP 153/67; PULSE 78; RESP 16; TEMP 36.9; O2SAT 99
[2021-12-08] MEDS: IBUPROFEN 400 MG TABLET PO ×3 (00:58→08:25)
[2021-12-08 03:57] VITALS: BP 147/65; PULSE 74; RESP 16; TEMP 36.3; O2SAT 96
[2021-12-08 07:52] VITALS: BP 163/64; PULSE 62; RESP 18; TEMP 36.6; O2SAT 98
--- NOTE | 2021-12-08 07:58 | CM.DPC ---
DCP Discharge SNF Per Ortho PA, pt remains stable for d/c to SNF today with no identified barriers to discharge. LEONARD met bedside with pt and explained role and confirmed pt is agreeable with d/c to [facility] today and did secure transport via family member today at 1100. SW faxed [facility], med list, script, d/c orders, updated COVID neg swab and d/c summary to CSV to review and called and left msg on admissions phone requesting confirmation they received. LEONARD updated RN and REFINED SYRUP OPERATOR. Plan: Patient to d/c to [facility] via POV today at 1100 before safe return home with family. Idania Walters MSW
[2021-12-08] MEDS: hydroCHLOROthiazide 25 MG TABLET 12.5 MG PO (08:24)
[2021-12-08] MEDS: FAMOTIDINE 20 MG TABLET 40 MG PO (08:24)
[2021-12-08] MEDS: DOCUSATE 100 MG CAPSULE PO (08:24)
[2021-12-08] MEDS: ASPIRIN EC 81 MG TABLET PO (08:25)
--- NOTE | 2021-12-08 10:39 | PC.NURSE ---
[facility] Patient is ready to leave and personal transportation is arrived to take patient to facility. Patient's prescriptions removed from chart and placed in packet envelope. Patient left in stable condition. VSS.
== END 2021-12-08 10:50 ==
LOC: OR 12-06 08:37 → AC 12-06 08:37
PROVIDERS: Admitting Provider Orthopaedic Surgery; PCP Family Medicine; Referring Provider Orthopaedic Surgery; Visit Provider Orthopaedic Surgery
PROC: 0SRD0JZ Replacement of Left Knee Joint with Synthetic Substitute, Open Approach (ICD-10-PCS; CPT 27447; principal; 2021-12-04 08:45)
DX: M17.12 Unilateral primary osteoarthritis, left knee (principal); J45.909 Unspecified asthma, uncomplicated; K21.9 Gastro-esophageal reflux disease without esophagitis; I10 Essential (primary) hypertension; E66.9 Obesity, unspecified; Z68.38 Body mass index [BMI] 38.0-38.9, adult
CPT/HCPCS: 27447; 36415; 73560; 85014; 85018; 87635; 97116; 97162; 97530; C1776; C9803; G0378; A9270; C1713; C9290; J0171; J0690; J1100; J2250; J2270; J2274; J2405; J2704; J2765; J3010